=== PATIENT | female | born 1960 | race Caucasian/White ===

== ENCOUNTER 2017-05-13 09:32 | Inpatient (IN) | payer BC, MEDICAID ==
[2017-05-13] MEDS ORDERED: Albuterol/Ipratropium 3.0-0.5 MG/3 ML Neb Soln NEB ONE (09:34)
[2017-05-13] MEDS ORDERED: Budesonide 0.5 MG/2 ML Neb Susp NEB ONE (09:34)
[2017-05-13] MEDS ORDERED: cefTRIAXone 1 GM Vial IV ONE (09:34)
--- NOTE | 2017-05-13 09:34 | EDM.PDOC ---
ED HPI GENERAL MEDICAL PROBLEM - General Chief Complaint: Respiratory Problem Stated Complaint: SOB Time Seen by Provider: 05/13/17 09:33 Source of Information: Reports: Patient, EMS, Old Records ([facility] chart/EMR). 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 The patient has a history of flu type symptoms, including fever of 100.8, generalized arthralgias, and nonspecific abdominal pain, including 10 episodes of emesis during the last few days, including one episode prior to arrival. He did take Tylenol yesterday evening with only minimal improvement of her symptoms. The patient has not taken her lisinopril for today secondary to the above symptoms. She denies any known exposure to infection, food poisoning, etc. She does have some generalized weakness with sensation of mild tachycardia this morning. Symptoms started about 5 days ago. The patient denies any chest pain/pressure, orthostasis, orthopnea, diaphoresis, paresthesias, recent decreased exercise tolerance, or any other anginal-type symptoms. No recent history of heartburn, diarrhea, melena, gross hematochezia, or any food intolerance, including fatty foods, etc.. She has also had some increasing wheezing and dyspnea with inhalers used at home this past evening. Note Accu- Chek of 137 mg percent taken by paramedics in route Onset: Gradual Onset Date: 05/02/17 Onset Time: 09:00 Duration: Constant, Getting Worse Location: Reports: Abdomen, Generalized (Generalized arthralgias). Denies: Head , Face, Neck, Chest, Back, Pelvis, Upper Extremity, Left, Upper Extremity, Right , Lower Extremity, Left, Lower Extremity, Right, Radiates to Quality: Reports: Ache, Same as Previous Episode Severity: Mild Improves with: Reports: None Worsens with: Reports: None Context: Reports: Other (As above) Associated Symptoms: Reports: Cough, Fever/Chills, Loss of Appetite, Nausea/ Vomiting, Shortness of Breath, Weakness (Nonspecific generalized). 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, Other Medication(s) (As above) Right Abdominal Pain Score (Numeric/FACES): 4 - Related Data Allergies Allergy/AdvReac Type Severity Reaction Status Date / Time b[place] nuts Allergy Swelling Uncoded 05/13/17 09:46 Home Meds: Home Meds Acetaminophen [Tylenol] 650 mg PO Q4H PRN 05/13/17 [History] Carvedilol [Coreg] 6.25 mg PO BIDMEALS 05/13/17 [History] Clopidogrel [Plavix] 75 mg PO DAILY 05/13/17 [History] Gabapentin [Neurontin] 300 mg PO TID 05/13/17 [History] Lisinopril 30 mg PO DAILY 05/13/17 [History] Sertraline [Zoloft] 100 mg PO BID 05/13/17 [History] atorvaSTATin [Lipitor] 20 mg PO BEDTIME 05/13/17 [History] busPIRone [Buspar] 15 mg PO BID 05/13/17 [History] oxyCODONE HCl [Oxycodone HCl] 10 mg PO 5XDAY 05/13/17 [History] Past Medical History HEENT History: Reports: Impaired Vision, Other (See Below). Denies: Allergic Rhinitis, Cataract, Glaucoma, Hard of Hearing, Macular Degeneration, Retinal Detachment Other HEENT History: Severe allergic reactions to [place] nuts including angioedema Cardiovascular History: Reports: CAD, High Cholesterol, Hypertension, AR, PTCA, Stents, Other (See Below). Denies: Afib, Arrhythmia, Blood Clots/VTE/DVT, Heart Failure, Heart Murmur, Syncope Other Cardiovascular History: Acute AR on 04/30/09 Respiratory History: Reports: Bronchitis, Recurrent, COPD, Intubation, Previous , Pulmonary Fibrosis. Denies: Intubation, Difficult, PE, Pneumothorax, Sleep Apnea Gastrointestinal History: Reports: Cholelithiasis, Pancreatitis, Other (See Below) Other Gastrointestinal History: Pancreatitis secondary to remaining in 1990 Musculoskeletal History: Reports: Back Pain, Chronic, Fracture, Osteoarthritis, Other (See Below) Other Musculoskeletal History: Right distal radial fracture on 06/17/16, scoliosis with degenerative disc disease including disc prolapse at L5-S1 and grade 1 listhesis at L4-L5 by MRI on 08/08/16 Neurological History: Reports: Neuropathy, Peripheral Endocrine/Metabolic History: Reports: Obesity/BMI 30+ - Past Surgical History GI Surgical History: Reports: Cholecystectomy, Other (See Below) Other GI Surgeries/Procedures: open cholecystectomy in 1994 - Past Imaging History Past Imaging History: Reports: Angiography (Heart catheterization on 04/30/09), Cardiac Echo (12/26/12 with ejection fraction of 69%), MRI (Lumbar region on 08/08), Stress Testing (Unknown Type of drug induced stress test without Cardiolite scan in April 2009), Venous Doppler (Right leg on 01/07/13) Social & Family History - Family History Psychiatric: Reports: Anxiety, Depression, Suicide Attempt, Other (See Below) Other Psychiatric Family History: Son with anxiety depression disorder, alcohol abuse and successful suicide at age 23; - Living Situation & Occupation Occupation: Employed ([email or web address]) ED ROS GENERAL - Review of Systems Review Of Systems: ROS reveals no pertinent complaints other than HPI. ED EXAM, GENERAL - Physical Exam Exam: See Below Exam Limited By: No Limitations General Appearance: Alert, WD/WN, No Apparent Distress Eye Exam: Bilateral Eye: EOMI, Normal Inspection (No nystagmus), PERRL Ears: Normal External Exam, Normal Canal, Hearing Grossly Normal, Normal TMs Nose: Clear Rhinorrhea Throat/Mouth: Normal Lips, Normal Teeth (Multiple missing teeth), Normal Gums, Normal Voice, No Airway Compromise. No: Normal Oropharynx (Trace erythema in the posterior pharynx with no pinpoint white exudates or peritonsillar abscess; mild decreased moisture of oral mucosa), Dysphagia, Perioral Cyanosis Head: Atraumatic, Normocephalic. No: Facial Swelling, Facial Tenderness, Sinus Tenderness Neck: Normal Inspection, Supple, Non-Tender, Full Range of Motion. No: Carotid Bruit, Lymphadenopathy (L), Lymphadenopathy (R), Thyromegaly Respiratory/Chest: No Accessory Muscle Use, Chest Non-Tender, Rales (Mild diffuse bilateral basilar rales with only mild bilateral basilar rales after nebulizer treatments as below), Rhonchi (Moderate diffuse improved with nebulizer therapy), Wheezing (Moderate diffuse with resolution with nebulizer therapy). No: Pleural Rub, Retractions Cardiovascular: Normal Peripheral Pulses, No Edema, No Gallop, No JVD, No Murmur , No Rub, Tachycardia (Regular rhythm). No: Gallop/S3, Gallop/S4, Friction Rub Peripheral Pulses: 2+: Radial (L), Radial (R), Dorsalis Pedis (L), Dorsalis Pedis (R) GI/Abdominal: Normal Bowel Sounds, No Organomegaly, No Distention, No Abnormal Bruit, No Mass, Pelvis Stable, Tender (Moderate right upper quadrant and periumbilical palpation pain ), Other (Obese, multiple abdominal striae secondary to obesity ). No: Guarding, Rebound, Hernia, Mass (Female) Exam: Deferred Rectal (Female) Exam: Deferred Back Exam: Normal Inspection, Full Range of Motion. No: CVA Tenderness (L), CVA Tenderness (R), Muscle Spasm Extremities: Normal Inspection, Normal Range of Motion, Non-Tender, Normal Capillary Refill, No Pedal Edema Neurological: Alert, Oriented, CN II-XII Intact, Normal Cognition, Normal Gait, Normal Reflexes (Negative Babinski's), No Motor/Sensory Deficits Psychiatric: Normal Affect, Normal Mood Skin Exam: Warm, Dry, Intact, Normal Color, No Rash. No: Diaphoretic, Ecchymosis, Petechiae, Wound/Incision Lymphatic: No Adenopathy EKG INTERPRETATION EKG Date: 05/13/17 Time: 09:46 Rhythm: Other (Sinus tachycardia) Rate (Beats/Min): 133 [place]: Normal (Neutral cardiac axis) P-Wave: Enlarged (Moderate diffuse biphasic P waves with extreme poor R-wave progression in the anterior leads) QRS: Normal (Yours interval of 0.09 seconds representing repolarization changes with nonspecific ST changes in leads 1, 2, and V4 through V6) ST-T: Normal (As above) QT: Normal NH/PQ Interval: 0.11 seconds with no delta waves Comparison: NA - No Prior EKG EKG Interpretation Comments: 1. No acute ischemic changes 2. Sinus tachycardia with repolarization changes and nonspecific ST changes 3. Probable left atrial enlargement Course - Vital Signs Last Recorded V/S: Last Vital Signs Temp 36.7 C 05/13/17 11:14 Pulse 103 H 05/13/17 11:14 Resp 27 H 05/13/17 11:14 BP 117/57 L 05/13/17 11:14 Pulse Ox 97 05/13/17 11:14 Vital Signs - 24 hr 05/13/17 05/13/17 05/13/17 09:34 09:50 10:21 Temperature [ 37.2 C Oral] Pulse, 130 H 126 H 117 H Peripheral [ Right Brachial] Respiratory 24 H 24 H 30 H Rate Blood Pressure 140/78 116/57 L 116/57 L [Right Upper Arm] O2 Sat by Pulse 95 96 98 Oximetry 05/13/17 11:14 Temperature [ 36.7 C Oral] Pulse, 103 H Peripheral [ Right Brachial] Respiratory 27 H Rate Blood Pressure 117/57 L [Right Upper Arm] O2 Sat by Pulse 97 Oximetry - Orders/Labs/Meds Orders: Active Orders 24 hr Category Date Time Status Cardiac Monitoring [RC] CONTINUOUS Care 05/13/17 09:34 Active Communication Order [RC] ROUTINE Care 05/13/17 09:34 Active EKG Documentation Completion [RC] ASDIRECTED Care 05/13/17 09:36 Active Oxygen Therapy, ED [RC] CONTINUOUS Care 05/13/17 09:34 Active Peripheral IV Care [RC] . DIRECTED Care 05/13/17 09:36 Active Pulse Oximetry [RC] CONTINUOUS Care 05/13/17 09:34 Active Up With Assistance [RC] ASDIRECTED Care 05/13/17 09:34 Active Nothing Per Oral Diet [DIET] Diet 05/13/17 Breakfast Active Abdomen Series w Chest 1V [CR] Stat Exams 05/13/17 09:45 Taken Chest PE [Ang Chest] [CT] Stat Exams 05/13/17 10:21 Ordered CULTURE BLOOD [BC] Stat Lab 05/13/17 09:35 Received CULTURE BLOOD [BC] Stat Lab 05/13/17 09:40 Received CULTURE SPUTUM + SMEAR [RM] Urgent Lab 05/13/17 09:34 Uncollected CULTURE STREP A CONFIRMATION [] Stat Lab 05/13/17 09:40 Results STREP SCRN A RAPID W CULT CONF [] Stat Lab 05/13/17 09:40 Results Acetaminophen [Tylenol] Med 05/13/17 09:34 Active 650 mg PO Q4H PRN Sodium Chloride 0.9% [Saline Flush] Med 05/13/17 09:34 Active 10 ml FLUSH ASDIRECTED PRN Blood Culture x2 Reflex Set [OM.PC] Stat Oth 05/13/17 09:34 Ordered Obtain Past Medical Record [OM.PC] Stat Oth 05/13/17 09:34 Active Peripheral IV Insertion Adult [OM.PC] Stat Oth 05/13/17 09:34 Ordered Resuscitation Status Routine Resus Stat 05/13/17 09:34 Ordered Medication Orders Acetaminophen (Tylenol) 650 mg PO Q4H PRN PRN Reason: Pain/Fever Last Admin: 05/13/17 10:20 Dose: 650 mg Sodium Chloride (Saline Flush) 10 ml FLUSH ASDIRECTED PRN PRN Reason: Keep Vein Open Labs: Laboratory Tests 05/13/17 05/13/17 05/13/17 Range/Units 09:40 09:40 09:40 WBC 6.6 (4.0-10.2) K/uL RBC 4.64 (3.77-5.09) M/uL Hgb 14.5 (11.7-15.5) g/dL Hct 41.3 (34.0-46.0) % MCV 89.0 D (84.0-98.0) fL MCH 31.3 (28.2-33.3) pg MCHC 35.1 (31.7-36.0) g/dL RDW 14.5 H (11.2-14.1) % Plt Count 114 L D (150-350) K/uL Neut % (Auto) 97.2 H (45.0-80.0) % Lymph % (Auto) 1.8 L (10.0-50.0) % [place] % (Auto) 0.6 L (2.0-14.0) % Eos % (Auto) 0.2 (0.0-5.0) % Baso % (Auto) 0.2 (0.0-2.0) % Neut # (Auto) 6.41 (1.40-7.00) K/uL Lymph # (Auto) 0.12 L (0.50-3.50) K/uL [place] # (Auto) 0.04 (0.00-1.00) K/uL Eos # (Auto) 0.01 (0.00-0.50) K/uL Baso # (Auto) 0.01 (0.00-0.20) K/uL D-Dimer, Quantitative 3950 H (0-400) ng/mL Sodium 136 (136-145) mmol/L Potassium 2.2 L* D (3.5-5.1) mmol/L Chloride 100 (98-107) mmol/L Carbon Dioxide 16.4 L (21.0-32.0) mmol/L BUN 33 H (7-18) mg/dL Creatinine 0.82 (0.51-1.17) mg/dL Est Cr Clr Drug Dosing 68.93 mL/min Estimated GFR (MDRD) > 60 mL/min Glucose 165 H (74-106) mg/dL Lactic Acid (0.4-2.0) mmol/L Calcium 8.7 (8.5-10.1) mg/dL Magnesium 1.7 L (1.8-2.4) mg/dL Total Bilirubin 1.2 H (0.2-1.0) mg/dL AST 30 (15-37) U/L ALT 35 (12-78) U/L Alkaline Phosphatase 253 H (46-116) IU/L Creatine Kinase 42 (26-308) U/L Creatine Kinase Index 1.4 (0.0-2.5) % CK-MB (CK-2) 0.60 (0.00-3.60) ng/mL Troponin I 0.000 (0.000-0.056) ng/mL NT-Pro-B Natriuret Pep 137 H (0-125) pg/mL Total Protein 6.5 (6.4-8.2) g/dL Albumin 2.3 L (3.4-5.0) g/dL Amylase 6 L (25-115) U/L Lipase 32 L (73-393) U/L TSH, Ultra Sensitive 1.082 (0.358-3.740) mIU/mL 05/13/17 Range/Units 09:40 WBC (4.0-10.2) K/uL RBC (3.77-5.09) M/uL Hgb (11.7-15.5) g/dL Hct (34.0-46.0) % MCV (84.0-98.0) fL MCH (28.2-33.3) pg MCHC (31.7-36.0) g/dL RDW (11.2-14.1) % Plt Count (150-350) K/uL Neut % (Auto) (45.0-80.0) % Lymph % (Auto) (10.0-50.0) % [place] % (Auto) (2.0-14.0) % Eos % (Auto) (0.0-5.0) % Baso % (Auto) (0.0-2.0) % Neut # (Auto) (1.40-7.00) K/uL Lymph # (Auto) (0.50-3.50) K/uL [place] # (Auto) (0.00-1.00) K/uL Eos # (Auto) (0.00-0.50) K/uL Baso # (Auto) (0.00-0.20) K/uL D-Dimer, Quantitative (0-400) ng/mL Sodium (136-145) mmol/L Potassium (3.5-5.1) mmol/L Chloride (98-107) mmol/L Carbon Dioxide (21.0-32.0) mmol/L BUN (7-18) mg/dL Creatinine (0.51-1.17) mg/dL Est Cr Clr Drug Dosing mL/min Estimated GFR (MDRD) mL/min Glucose (74-106) mg/dL Lactic Acid 5.5 H (0.4-2.0) mmol/L Calcium (8.5-10.1) mg/dL Magnesium (1.8-2.4) mg/dL Total Bilirubin (0.2-1.0) mg/dL AST (15-37) U/L ALT (12-78) U/L Alkaline Phosphatase (46-116) IU/L Creatine Kinase (26-308) U/L Creatine Kinase Index (0.0-2.5) % CK-MB (CK-2) (0.00-3.60) ng/mL Troponin I (0.000-0.056) ng/mL NT-Pro-B Natriuret Pep (0-125) pg/mL Total Protein (6.4-8.2) g/dL Albumin (3.4-5.0) g/dL Amylase (25-115) U/L Lipase (73-393) U/L TSH, Ultra Sensitive (0.358-3.740) mIU/mL Blood cultures 2 collected Microbiology 05/13/17 09:40 Group A Streptococcus Rapid Screen - Final Throat NEGATIVE STREP A SCREEN 05/13/17 09:38 Influenza Type A Antigen Screen - Final Nasopharyngeal Swab - Nare, Right NEGATIVE INFLUENZA A VIRUS AG Influenza Type B Antigen Screen - Final NEGATIVE INFLUENZA B VIRUS AG Meds: Medications Generic Name Dose Route Start Last Admin Trade Name Ayanna PRN Reason Stop Dose Admin Acetaminophen 650 mg 05/13/17 09:34 05/13/17 10:20 Tylenol PO 650 mg Q4H PRN Administration Pain/Fever Sodium Chloride 10 ml 05/13/17 09:34 Saline Flush FLUSH ASDIRECTED PRN Keep Vein Open Discontinued Medications Generic Name Dose Route Start Last Admin Trade Name Ayanna PRN Reason Stop Dose Admin Albuterol/Ipratropium 3 ml 05/13/17 09:34 05/13/17 10:00 Duoneb 3.0-0.5 Mg/3 Ml NEB 05/13/17 09:35 3 ml ONETIME ONE Administration Budesonide 0.5 mg 05/13/17 09:34 05/13/17 10:00 Pulmicort NEB 05/13/17 09:35 0.5 mg ONETIME ONE Administration Ceftriaxone Sodium 1 gm 05/13/17 09:34 05/13/17 10:02 Rocephin IV 05/13/17 09:35 1 gm ONETIME ONE Administration Famotidine 40 mg 05/13/17 09:46 05/13/17 10:02 Pepcid IVPUSH 05/13/17 09:47 40 mg ONETIME ONE Administration Lactated Ringer's 1,000 mls @ 999 mls/hr 05/13/17 09:46 05/13/17 10:02 Ringers, Lactated IV 05/13/17 10:46 999 mls/hr .BOLUS ONE Administration Iopamidol 100 ml 05/13/17 10:29 05/13/17 10:52 Isovue-370 (76%) IVPUSH 05/13/17 10:30 100 ml ONETIME ONE Administration Magnesium Oxide 400 mg 05/13/17 11:12 Magnesium Oxide PO 05/13/17 11:13 ONETIME ONE Potassium Chloride 40 meq 05/13/17 11:12 Klor-Con M20 PO 05/13/17 11:13 ONETIME ONE - Radiology Interpretation Free Text/Narrative:: clinical research monitor shows initial sinus tachycardia in the high 130s with improvement to the 100s after treatment in the emergency room as above Acute abdominal x-rays shows evidence of moderate COPD changes and probable pulmonary hypertension and/or borderline mild centralized CHF. No significant pulmonary infiltrates, pneumothorax, etc.. Mildly elevated right hemidiaphragm. Note status post cholecystectomy. Mild diffuse stool with no free air, ileus, obstruction, etc. Telephone consultation at 11:15 a.m. with radiology department at [facility] with verbal report of CT of the chest using PE protocol. Negative evaluation at this time CT Results Date: 05/13/17 CT Results Time: 11:15 Departure - Departure Time of Disposition: :26 Disposition: Still A Patient 30 Condition: Fair Clinical Impression: Pneumonia, COPD (chronic obstructive pulmonary disease), Coronary artery disease, Lactic acid increased, Hypokalemia, D-dimer, elevated, Hyperglycemia, Hypomagnesemia, Hypoalbuminemia, Dehydration, Abdominal pain, Tobacco abuse counseling - Discharge Information Referrals: Dann Viramontes NP [Primary Care Provider] - Forms: ED Department Discharge - Problem List & Annotations (1) Pneumonia SNOMED Code(s): 508361730 Code(s): J18.9 - PNEUMONIA, UNSPECIFIED ORGANISM Status: Acute Priority: High Current Visit: Yes Onset Date: 05/13/17 Annotation/Comment:: Bilateral pneumonia by clinical exam despite minimal chest x-ray findings. IV Rocephin therapy initiated in the emergency room with additional antibiotic therapy also recommended. Note possible borderline sepsis as above Qualifiers: Pneumonia type: due to unspecified organism Laterality: bilateral Lung location: unspecified part of lung Qualified Code(s): J18.9 - Pneumonia, unspecified organism (2) Lactic acid increased SNOMED Code(s): 78076174 Code(s): E87.2 - ACIDOSIS Status: Acute Priority: High Current Visit: Yes Onset Date: 05/13/17 Annotation/Comment:: Possible sepsis secondary to pneumonia as above. Tachycardia improved as above. Lactic acid should be repeated in about 6 hours. Continue IV fluids (3) D-dimer, elevated SNOMED Code(s): 380963629 Code(s): R79.89 - OTHER SPECIFIED ABNORMAL FINDINGS OF BLOOD CHEMISTRY Status: Acute Priority: High Current Visit: Yes Onset Date: 05/13/17 Annotation/Comment:: CTA of the chest ordered with PE protocol (4) Abdominal pain SNOMED Code(s): 51507776 Code(s): R10.9 - UNSPECIFIED ABDOMINAL PAIN Status: Acute Priority: High Current Visit: Yes Onset Date: 05/13/17 Annotation/Comment:: Unspecific abdominal pain, nausea, and emesis likely secondary to viral GE. No significant leukocytosis at this time. Consider CT scan of the abdomen and pelvis with IV and oral contrast pending on her clinical course, however apparent history of previous pancreatitis secondary to contrast in the past? Qualifiers: Abdominal location: generalized Qualified Code(s): R10.84 - Generalized abdominal pain (5) COPD (chronic obstructive pulmonary disease) SNOMED Code(s): 63148634 Code(s): J44.9 - CHRONIC OBSTRUCTIVE PULMONARY DISEASE, UNSPECIFIED Status : Chronic Priority: High Current Visit: Yes Annotation/Comment:: Significant improvement in patient's symptoms with triple nebulizer treatment in the emergency room. Qualifiers: COPD type: COPD with acute lower respiratory infection Qualified Code(s): J44.0 - Chronic obstructive pulmonary disease with acute lower respiratory infection (6) Coronary artery disease SNOMED Code(s): 56840348 Code(s): I25.10 - ATHSCL HEART DISEASE OF [place] CORONARY ARTERY W/O ANG PCTRS Status: Chronic Priority: Medium Current Visit: Yes Annotation/ Comment:: Tachycardia improved with aggressive treatment as above. Tachycardia likely secondary to borderline possible sepsis, and dehydration no chest pain or anginal type symptoms. Only minimal BNP elevation with no clinical evidence of CHF. Note previous AR with PTCA and stent as above Qualifiers: Coronary Disease-Associated Artery/Lesion type: [place] artery [place] vs. transplanted heart: [place] heart Associated angina: without angina Qualified Code(s): I25.10 - Atherosclerotic heart disease of [place] coronary artery without angina pectoris (7) Dehydration SNOMED Code(s): 22314325 Code(s): E86.0 - DEHYDRATION Status: Acute Priority: High Current Visit : Yes Onset Date: 05/13/17 Annotation/Comment:: Mild Dehydration secondary to current illness. IV LR initiated in the emergency room (8) Hyperglycemia SNOMED Code(s): 20320099 Code(s): R73.9 - HYPERGLYCEMIA, UNSPECIFIED Status: Acute Priority: Medium Current Visit: Yes Onset Date: 05/13/17 Annotation/Comment:: No history of diabetes mellitus by patient history. Glycosylated hemoglobin recommended (9) Hypoalbuminemia SNOMED Code(s): 650373442 Code(s): E88.09 - [facility] DISORDERS OF PLASMA-PROTEIN METABOLISM, NEC Status: Acute Priority: Medium Current Visit: Yes Onset Date: 05/13/17 Annotation/Comment:: High-protein Glucerna supplements as snacks recommended (10) Hypokalemia SNOMED Code(s): 59595197 Code(s): E87.6 - HYPOKALEMIA Status: Chronic Priority: High Current Visit: Yes Onset Date: 05/13/17 Annotation/Comment:: Significant hypokalemia likely secondary to recurrent emesis as above. IV bolus of lactated Ringer's initiated in the emergency room with mid continue both oral and IV potassium supplementation and IV fluids (11) Hypomagnesemia SNOMED Code(s): 923205569 Code(s): E83.42 - HYPOMAGNESEMIA Status: Acute Priority: Medium Current Visit: Yes Onset Date: 05/13/17 Annotation/Comment:: Recommend initiation of magnesium oxide (12) Hypertension SNOMED Code(s): 13612534 Code(s): I10 - ESSENTIAL (PRIMARY) HYPERTENSION Status: Acute Priority: Medium Current Visit: Yes Annotation/Comment:: Blood pressures were under relatively good control despite borderline sepsis and noncompliance with lisinopril otherwise couple of days. Continue to observe closely Qualifiers: Hypertension type: essential hypertension Qualified Code(s): I10 - Essential (primary) hypertension (13) Tobacco abuse counseling SNOMED Code(s): 705264773, 078583832 Code(s): Z71.6 - TOBACCO ABUSE COUNSELING Status: Chronic Priority: Medium Current Visit: Yes Annotation/Comment:: Tobacco cessation strongly encouraged with tobacco cessation information to be provided at discharge - Problem List Review Problem List Initiated/Reviewed/Updated: Yes - My Orders Last 24 Hours: My Active Orders 05/13/17 09:34 Cardiac Monitoring [RC] CONTINUOUS Communication Order [RC] ROUTINE Oxygen Therapy, ED [RC] CONTINUOUS Pulse Oximetry [RC] CONTINUOUS Up With Assistance [RC] ASDIRECTED CULTURE SPUTUM + SMEAR [RM] Urgent Acetaminophen [Tylenol] 650 mg PO Q4H PRN Sodium Chloride 0.9% [Saline Flush] 10 ml FLUSH ASDIRECTED PRN Blood Culture x2 Reflex Set [OM.PC] Stat Obtain Past Medical Record [OM.PC] Stat Peripheral IV Insertion Adult [OM.PC] Stat Resuscitation Status Routine 05/13/17 09:35 CULTURE BLOOD [BC] Stat 05/13/17 09:36 EKG Documentation Completion [RC] ASDIRECTED Peripheral IV Care [RC] . DIRECTED 05/13/17 09:40 CULTURE BLOOD [BC] Stat CULTURE STREP A CONFIRMATION [RM] Stat STREP SCRN A RAPID W CULT CONF [RM] Stat 05/13/17 09:45 Abdomen Series w Chest 1V [CR] Stat 05/13/17 10:21 Chest PE [Ang Chest] [CT] Stat 05/13/17 Breakfast Nothing Per Oral Diet [DIET] - Assessment/Plan Last 24 Hours: My Active Orders 05/13/17 09:34 Cardiac Monitoring [RC] CONTINUOUS Communication Order [RC] ROUTINE Oxygen Therapy, ED [RC] CONTINUOUS Pulse Oximetry [RC] CONTINUOUS Up With Assistance [RC] ASDIRECTED CULTURE SPUTUM + SMEAR [RM] Urgent Acetaminophen [Tylenol] 650 mg PO Q4H PRN Sodium Chloride 0.9% [Saline Flush] 10 ml FLUSH ASDIRECTED PRN Blood Culture x2 Reflex Set [OM.PC] Stat Obtain Past Medical Record [OM.PC] Stat Peripheral IV Insertion Adult [OM.PC] Stat Resuscitation Status Routine 05/13/17 09:35 CULTURE BLOOD [BC] Stat 05/13/17 09:36 EKG Documentation Completion [RC] ASDIRECTED Peripheral IV Care [RC] . DIRECTED 05/13/17 09:40 CULTURE BLOOD [BC] Stat CULTURE STREP A CONFIRMATION [RM] Stat STREP SCRN A RAPID W CULT CONF [RM] Stat 05/13/17 09:45 Abdomen Series w Chest 1V [CR] Stat 05/13/17 10:21 Chest PE [Ang Chest] [CT] Stat 05/13/17 Breakfast Nothing Per Oral Diet [DIET] Assessment:: As above Plan: As above. Patient's care transferred to Dr. Goetz at 11:15 a.m.. Probable admission to inpatient/acute care.
[2017-05-13] MEDS ORDERED: Lactated Ringers 1,000 ML IV ONE (09:46)
[2017-05-13] MEDS ORDERED: Famotidine 20 MG/2 ML SDV IVPUSH ONE (09:46)
[2017-05-13 10:11] LABS: CHLORIDE,CL 100 mmol/L (98-107); SODIUM,NA 136 mmol/L (136-145)
[2017-05-13] MEDS: Acetaminophen 325 MG Tab PO PRN (10:20)
[2017-05-13] MEDS ORDERED: Iopamidol 755 Mg/ML 100 ML Bottle IVPUSH ONE (10:29)
[2017-05-13] MEDS ORDERED: Magnesium Oxide 400 MG Tab PO ONE (11:12)
[2017-05-13] MEDS ORDERED: Potassium Chloride 20 MEQ Tab.ER PO ONE ×3 (11:12→19:00)
--- NOTE | 2017-05-13 11:41 | EDM.PDOC ---
ED HPI GENERAL MEDICAL PROBLEM - General Chief Complaint: Respiratory Problem Stated Complaint: SOB Time Seen by Provider: 05/13/17 09:33 Source of Information: Reports: Patient, EMS, Old Records ([facility] chart/EMR). 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 The patient has a history of flu type symptoms, including fever of 100.8, generalized arthralgias, and nonspecific abdominal pain, including 10 episodes of emesis during the last few days, including one episode prior to arrival. He did take Tylenol yesterday evening with only minimal improvement of her symptoms. The patient has not taken her lisinopril for today secondary to the above symptoms. She denies any known exposure to infection, food poisoning, etc. She does have some generalized weakness with sensation of mild tachycardia this morning. Symptoms started about 5 days ago. The patient denies any chest pain/pressure, orthostasis, orthopnea, diaphoresis, paresthesias, recent decreased exercise tolerance, or any other anginal-type symptoms. No recent history of heartburn, diarrhea, melena, gross hematochezia, or any food intolerance, including fatty foods, etc.. She has also had some increasing wheezing and dyspnea with inhalers used at home this past evening. Note Accu- Chek of 137 mg percent taken by paramedics in route Onset: Gradual Onset Date: 05/02/17 Onset Time: 09:00 Duration: Constant, Getting Worse Location: Reports: Abdomen, Generalized (Generalized arthralgias). Denies: Head , Face, Neck, Chest, Back, Pelvis, Upper Extremity, Left, Upper Extremity, Right , Lower Extremity, Left, Lower Extremity, Right, Radiates to Quality: Reports: Ache, Same as Previous Episode Severity: Mild Improves with: Reports: None Worsens with: Reports: None Context: Reports: Other (As above) Associated Symptoms: Reports: Cough, Fever/Chills, Loss of Appetite, Nausea/ Vomiting, Shortness of Breath, Weakness (Nonspecific generalized). 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, Other Medication(s) (As above) Right Abdominal Pain Score (Numeric/FACES): 4 - Related Data Allergies Allergy/AdvReac Type Severity Reaction Status Date / Time [place] nuts Allergy Swelling Uncoded 05/13/17 09:46 Home Meds: Home Meds Acetaminophen [Tylenol] 650 mg PO Q4H PRN 05/13/17 [History] Carvedilol [Coreg] 6.25 mg PO BIDMEALS 05/13/17 [History] Clopidogrel [Plavix] 75 mg PO DAILY 05/13/17 [History] Gabapentin [Neurontin] 300 mg PO TID 05/13/17 [History] Lisinopril 30 mg PO DAILY 05/13/17 [History] Sertraline [Zoloft] 100 mg PO BID 05/13/17 [History] atorvaSTATin [Lipitor] 20 mg PO BEDTIME 05/13/17 [History] busPIRone [Buspar] 15 mg PO BID 05/13/17 [History] oxyCODONE HCl [Oxycodone HCl] 10 mg PO 5XDAY 05/13/17 [History] Past Medical History HEENT History: Reports: Impaired Vision, Other (See Below). Denies: Allergic Rhinitis, Cataract, Glaucoma, Hard of Hearing, Macular Degeneration, Retinal Detachment Other HEENT History: Severe allergic reactions to [place] nuts including angioedema Cardiovascular History: Reports: CAD, High Cholesterol, Hypertension, [place], PTCA, Stents, Other (See Below). Denies: Afib, Arrhythmia, Blood Clots/VTE/DVT, Heart Failure, Heart Murmur, Syncope Other Cardiovascular History: Acute [place] on 04/30/09 Respiratory History: Reports: Bronchitis, Recurrent, COPD, Intubation, Previous , Pulmonary Fibrosis. Denies: Intubation, Difficult, PE, Pneumothorax, Sleep Apnea Gastrointestinal History: Reports: Cholelithiasis, Pancreatitis, Other (See Below) Other Gastrointestinal History: Pancreatitis secondary to remaining in 1990 Musculoskeletal History: Reports: Back Pain, Chronic, Fracture, Osteoarthritis, Other (See Below) Other Musculoskeletal History: Right distal radial fracture on 06/17/16, scoliosis with degenerative disc disease including disc prolapse at L5-S1 and grade 1 listhesis at L4-L5 by MRI on 08/08/16 Neurological History: Reports: Neuropathy, Peripheral Endocrine/Metabolic History: Reports: Obesity/BMI 30+ - Past Surgical History GI Surgical History: Reports: Cholecystectomy, Other (See Below) Other GI Surgeries/Procedures: open cholecystectomy in 1994 - Past Imaging History Past Imaging History: Reports: Angiography (Heart catheterization on 04/30/09), Cardiac Echo (12/26/12 with ejection fraction of 69%), MRI (Lumbar region on 08/08), Stress Testing (Unknown Type of drug induced stress test without Cardiolite scan in April 2009), Venous Doppler (Right leg on 01/07/13) Social & Family History - Family History Psychiatric: Reports: Anxiety, Depression, Suicide Attempt, Other (See Below) Other Psychiatric Family History: Son with anxiety depression disorder, alcohol abuse and successful suicide at age 23; - Living Situation & Occupation Occupation: Employed ([employer]) ED ROS GENERAL - Review of Systems Review Of Systems: ROS reveals no pertinent complaints other than HPI. 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 The patient has a history of flu type symptoms, including fever of 100.8, generalized arthralgias, and nonspecific abdominal pain, including 10 episodes of emesis during the last few days, including one episode prior to arrival. He did take Tylenol yesterday evening with only minimal improvement of her symptoms. The patient has not taken her lisinopril for today secondary to the above symptoms. She denies any known exposure to infection, food poisoning, etc. She does have some generalized weakness with sensation of mild tachycardia this morning. Symptoms started about 5 days ago. The patient denies any chest pain/pressure, orthostasis, orthopnea, diaphoresis, paresthesias, recent decreased exercise tolerance, or any other anginal-type symptoms. No recent history of heartburn, diarrhea, melena, gross hematochezia, or any food intolerance, including fatty foods, etc.. She has also had some increasing wheezing and dyspnea with inhalers used at home this past evening. Note Accu- Chek of 137 mg percent taken by paramedics in route Exam Limited By: No Limitations General Appearance: Alert, WD/WN, No Apparent Distress Ears: Normal External Exam, Normal Canal, Hearing Grossly Normal, Normal TMs Nose: Clear Rhinorrhea Throat/Mouth: Normal Lips, Normal Teeth (Multiple missing teeth), Normal Gums, Normal Voice, No Airway Compromise. No: Normal Oropharynx (Trace erythema in the posterior pharynx with no pinpoint white exudates or peritonsillar abscess; mild decreased moisture of oral mucosa), Dysphagia, Perioral Cyanosis Head: Atraumatic, Normocephalic. No: Facial Swelling, Facial Tenderness, Sinus Tenderness Neck: Normal Inspection, Supple, Non-Tender, Full Range of Motion. No: Carotid Bruit, Lymphadenopathy (L), Lymphadenopathy (R), Thyromegaly Respiratory/Chest: No Accessory Muscle Use, Chest Non-Tender, Rales (Mild diffuse bilateral basilar rales with only mild bilateral basilar rales after nebulizer treatments as below), Rhonchi (Moderate diffuse improved with nebulizer therapy), Wheezing (Moderate diffuse with resolution with nebulizer therapy). No: Pleural Rub, Retractions Cardiovascular: Normal Peripheral Pulses, No Edema, No Gallop, No JVD, No Murmur , No Rub, Tachycardia (Regular rhythm). No: Gallop/S3, Gallop/S4, Friction Rub Peripheral Pulses: 2+: Radial (L), Radial (R), Dorsalis Pedis (L), Dorsalis Pedis (R) GI/Abdominal: Normal Bowel Sounds, No Organomegaly, No Distention, No Abnormal Bruit, No Mass, Pelvis Stable, Tender (Moderate right upper quadrant and periumbilical palpation pain ), Other (Obese, multiple abdominal striae secondary to obesity ). No: Guarding, Rebound, Hernia, Mass Back Exam: Normal Inspection, Full Range of Motion. No: CVA Tenderness (L), CVA Tenderness (R), Muscle Spasm Extremities: Normal Inspection, Normal Range of Motion, Non-Tender, Normal Capillary Refill, No Pedal Edema Neurological: Alert, Oriented, CN II-XII Intact, Normal Cognition, Normal Gait, Normal Reflexes (Negative Babinski's), No Motor/Sensory Deficits Psychiatric: Normal Affect, Normal Mood Skin Exam: Warm, Dry, Intact, Normal Color, No Rash. No: Diaphoretic, Ecchymosis, Petechiae, Wound/Incision Lymphatic: No Adenopathy Course - Vital Signs Last Recorded V/S: Last Vital Signs Temp 36.7 C 05/13/17 11:14 Pulse 103 H 05/13/17 11:14 Resp 27 H 05/13/17 11:14 BP 117/57 L 05/13/17 11:14 Pulse Ox 97 05/13/17 11:14 - Orders/Labs/Meds Orders: Active Orders 24 hr Category Date Time Status Cardiac Monitoring [RC] CONTINUOUS Care 05/13/17 09:34 Active Communication Order [RC] ROUTINE Care 05/13/17 09:34 Active EKG Documentation Completion [RC] ASDIRECTED Care 05/13/17 09:36 Active Oxygen Therapy, ED [RC] CONTINUOUS Care 05/13/17 09:34 Active Peripheral IV Care [RC] . DIRECTED Care 05/13/17 09:36 Active Pulse Oximetry [RC] CONTINUOUS Care 05/13/17 09:34 Active Up With Assistance [RC] ASDIRECTED Care 05/13/17 09:34 Active Nothing Per Oral Diet [DIET] Diet 05/13/17 Breakfast Active Abdomen Series w Chest 1V [CR] Stat Exams 05/13/17 09:45 Taken Chest PE [Ang Chest] [CT] Stat Exams 05/13/17 10:21 Taken CULTURE BLOOD [BC] Stat Lab 05/13/17 09:35 Received CULTURE BLOOD [] Stat Lab 05/13/17 09:40 Received CULTURE SPUTUM + SMEAR [] Urgent Lab 05/13/17 09:34 Uncollected CULTURE STREP A CONFIRMATION [] Stat Lab 05/13/17 09:40 Results STREP SCRN A RAPID W CULT CONF [] Stat Lab 05/13/17 09:40 Results Acetaminophen [Tylenol] Med 05/13/17 09:34 Active 650 mg PO Q4H PRN Sodium Chloride 0.9% [Saline Flush] Med 05/13/17 09:34 Active 10 ml FLUSH ASDIRECTED PRN Blood Culture x2 Reflex Set [OM.PC] Stat Oth 05/13/17 09:34 Ordered Obtain Past Medical Record [OM.PC] Stat Oth 05/13/17 09:34 Active Peripheral IV Insertion Adult [OM.PC] Stat Oth 05/13/17 09:34 Ordered Resuscitation Status Routine Resus Stat 05/13/17 09:34 Ordered Medication Orders Acetaminophen (Tylenol) 650 mg PO Q4H PRN PRN Reason: Pain/Fever Last Admin: 05/13/17 10:20 Dose: 650 mg Sodium Chloride (Saline Flush) 10 ml FLUSH ASDIRECTED PRN PRN Reason: Keep Vein Open Labs: Laboratory Tests 05/13/17 05/13/17 05/13/17 Range/Units 09:40 09:40 09:40 WBC 6.6 (4.0-10.2) K/uL RBC 4.64 (3.77-5.09) M/uL Hgb 14.5 (11.7-15.5) g/dL Hct 41.3 (34.0-46.0) % MCV 89.0 D (84.0-98.0) fL MCH 31.3 (28.2-33.3) pg MCHC 35.1 (31.7-36.0) g/dL RDW 14.5 H (11.2-14.1) % Plt Count 114 L D (150-350) K/uL Neut % (Auto) 97.2 H (45.0-80.0) % Lymph % (Auto) 1.8 L (10.0-50.0) % Cross % (Auto) 0.6 L (2.0-14.0) % Eos % (Auto) 0.2 (0.0-5.0) % Baso % (Auto) 0.2 (0.0-2.0) % Neut # (Auto) 6.41 (1.40-7.00) K/uL Lymph # (Auto) 0.12 L (0.50-3.50) K/uL Cross # (Auto) 0.04 (0.00-1.00) K/uL Eos # (Auto) 0.01 (0.00-0.50) K/uL Baso # (Auto) 0.01 (0.00-0.20) K/uL D-Dimer, Quantitative 3950 H (0-400) ng/mL Sodium 136 (136-145) mmol/L Potassium 2.2 L* D (3.5-5.1) mmol/L Chloride 100 (98-107) mmol/L Carbon Dioxide 16.4 L (21.0-32.0) mmol/L BUN 33 H (7-18) mg/dL Creatinine 0.82 (0.51-1.17) mg/dL Est Cr Clr Drug Dosing 68.93 mL/min Estimated GFR (MDRD) > 60 mL/min Glucose 165 H (74-106) mg/dL Lactic Acid (0.4-2.0) mmol/L Calcium 8.7 (8.5-10.1) mg/dL Magnesium 1.7 L (1.8-2.4) mg/dL Total Bilirubin 1.2 H (0.2-1.0) mg/dL AST 30 (15-37) U/L ALT 35 (12-78) U/L Alkaline Phosphatase 253 H (46-116) IU/L Creatine Kinase 42 (26-308) U/L Creatine Kinase Index 1.4 (0.0-2.5) % CK-MB (CK-2) 0.60 (0.00-3.60) ng/mL Troponin I 0.000 (0.000-0.056) ng/mL NT-Pro-B Natriuret Pep 137 H (0-125) pg/mL Total Protein 6.5 (6.4-8.2) g/dL Albumin 2.3 L (3.4-5.0) g/dL Amylase 6 L (25-115) U/L Lipase 32 L (73-393) U/L TSH, Ultra Sensitive 1.082 (0.358-3.740) mIU/mL 05/13/17 Range/Units 09:40 WBC (4.0-10.2) K/uL RBC (3.77-5.09) M/uL Hgb (11.7-15.5) g/dL Hct (34.0-46.0) % MCV (84.0-98.0) fL MCH (28.2-33.3) pg MCHC (31.7-36.0) g/dL RDW (11.2-14.1) % Plt Count (150-350) K/uL Neut % (Auto) (45.0-80.0) % Lymph % (Auto) (10.0-50.0) % Cross % (Auto) (2.0-14.0) % Eos % (Auto) (0.0-5.0) % Baso % (Auto) (0.0-2.0) % Neut # (Auto) (1.40-7.00) K/uL Lymph # (Auto) (0.50-3.50) K/uL Cross # (Auto) (0.00-1.00) K/uL Eos # (Auto) (0.00-0.50) K/uL Baso # (Auto) (0.00-0.20) K/uL D-Dimer, Quantitative (0-400) ng/mL Sodium (136-145) mmol/L Potassium (3.5-5.1) mmol/L Chloride (98-107) mmol/L Carbon Dioxide (21.0-32.0) mmol/L BUN (7-18) mg/dL Creatinine (0.51-1.17) mg/dL Est Cr Clr Drug Dosing mL/min Estimated GFR (MDRD) mL/min Glucose (74-106) mg/dL Lactic Acid 5.5 H (0.4-2.0) mmol/L Calcium (8.5-10.1) mg/dL Magnesium (1.8-2.4) mg/dL Total Bilirubin (0.2-1.0) mg/dL AST (15-37) U/L ALT (12-78) U/L Alkaline Phosphatase (46-116) IU/L Creatine Kinase (26-308) U/L Creatine Kinase Index (0.0-2.5) % CK-MB (CK-2) (0.00-3.60) ng/mL Troponin I (0.000-0.056) ng/mL NT-Pro-B Natriuret Pep (0-125) pg/mL Total Protein (6.4-8.2) g/dL Albumin (3.4-5.0) g/dL Amylase (25-115) U/L Lipase (73-393) U/L TSH, Ultra Sensitive (0.358-3.740) mIU/mL Meds: Medications Generic Name Dose Route Start Last Admin Trade Name Freq PRN Reason Stop Dose Admin Acetaminophen 650 mg 05/13/17 09:34 05/13/17 10:20 Tylenol PO 650 mg Q4H PRN Administration Pain/Fever Sodium Chloride 10 ml 05/13/17 09:34 Saline Flush FLUSH ASDIRECTED PRN Keep Vein Open Discontinued Medications Generic Name Dose Route Start Last Admin Trade Name Freq PRN Reason Stop Dose Admin Albuterol/Ipratropium 3 ml 05/13/17 09:34 05/13/17 10:00 Duoneb 3.0-0.5 Mg/3 Ml NEB 05/13/17 09:35 3 ml ONETIME ONE Administration Budesonide 0.5 mg 05/13/17 09:34 05/13/17 10:00 Pulmicort NEB 05/13/17 09:35 0.5 mg ONETIME ONE Administration Ceftriaxone Sodium 1 gm 05/13/17 09:34 05/13/17 10:02 Rocephin IV 05/13/17 09:35 1 gm ONETIME ONE Administration Famotidine 40 mg 05/13/17 09:46 05/13/17 10:02 Pepcid IVPUSH 05/13/17 09:47 40 mg ONETIME ONE Administration Lactated Ringer's 1,000 mls @ 999 mls/hr 05/13/17 09:46 05/13/17 10:02 Ringers, Lactated IV 05/13/17 10:46 999 mls/hr .BOLUS ONE Administration Iopamidol 100 ml 05/13/17 10:29 05/13/17 10:52 Isovue-370 (76%) IVPUSH 05/13/17 10:30 100 ml ONETIME ONE Administration Magnesium Oxide 400 mg 05/13/17 11:12 05/13/17 11:44 Magnesium Oxide PO 05/13/17 11:13 400 mg ONETIME ONE Administration Potassium Chloride 40 meq 05/13/17 11:12 05/13/17 11:44 Klor-Con M20 PO 05/13/17 11:13 40 meq ONETIME ONE Administration - Re-Assessments/Exams Free Text/Narrative Re-Assessment/Exam: 05/13/17 11:41 Patient initially evaluated by for complaint of fever, malaise, emesis, weakness, cough that has been present for several days. Please see his documentation for HPI/ROS/exam/initial results. WBC normal. Platelets decreased at 114. Rapid strep and influenza negative. DDimer elevated but patient had unremarkable chest CT. Amylase and Lipase were not elevated, however total Bili mildly increased at 1.2 Glucose 165 Lactic acid increased at 5.5 Noted to have both Albumin and Mg in lower range. K decreased to 2.2 Patient received IV fluids as well as oral K and Mg in the ER. Rocephin was also given. No focal bacterial infection identified at this point. Patient's illness certain could be viral. Potential sepsis was suggested by some of her presentation and labwork. Given her smoking history, respiratory complaints, and elevated lactic acid, she will receive antibiotic coverage in addition to correction of potassium. Admitted inpatient to floor with diagnosis of hypokalemia, fever, dehydration. Departure - Departure Time of Disposition: 11:59 Disposition: Admitted As Inpatient 66 Condition: Fair Clinical Impression: Pneumonia, COPD (chronic obstructive pulmonary disease), Coronary artery disease, Lactic acid increased, Hypokalemia, D-dimer, elevated, Hyperglycemia, Hypomagnesemia, Hypoalbuminemia, Dehydration, Abdominal pain, Tobacco abuse counseling - Discharge Information - Problem List & Annotations (1) Abdominal pain SNOMED Code(s): 56087877 Code(s): R10.9 - UNSPECIFIED ABDOMINAL PAIN Status: Acute Priority: High Current Visit: Yes Onset Date: 05/13/17 Annotation/Comment:: Unspecific abdominal pain, nausea, and emesis likely secondary to viral GE. No significant leukocytosis at this time. Consider CT scan of the abdomen and pelvis with IV and oral contrast pending on her clinical course, however apparent history of previous pancreatitis secondary to contrast in the past? Qualifiers: Abdominal location: generalized Qualified Code(s): R10.84 - Generalized abdominal pain (2) D-dimer, elevated SNOMED Code(s): 548069788 Code(s): R79.89 - OTHER SPECIFIED ABNORMAL FINDINGS OF BLOOD CHEMISTRY Status: Acute Priority: High Current Visit: Yes Onset Date: 05/13/17 Annotation/Comment:: Negative CTA of chest. (3) Dehydration SNOMED Code(s): 02758118 Code(s): E86.0 - DEHYDRATION Status: Acute Priority: High Current Visit : Yes Onset Date: 05/13/17 Annotation/Comment:: Mild Dehydration secondary to current illness. IV LR initiated in the emergency room (4) Hyperglycemia SNOMED Code(s): 09039354 Code(s): R73.9 - HYPERGLYCEMIA, UNSPECIFIED Status: Acute Priority: Medium Current Visit: Yes Onset Date: 05/13/17 Annotation/Comment:: No history of diabetes mellitus by patient history. Glycosylated hemoglobin recommended (5) Hypoalbuminemia SNOMED Code(s): 579843322 Code(s): E88.09 - OTH DISORDERS OF PLASMA-PROTEIN METABOLISM, NEC Status: Acute Priority: Medium Current Visit: Yes Onset Date: 05/13/17 Annotation/Comment:: High-protein Glucerna supplements as snacks recommended (6) Hypomagnesemia SNOMED Code(s): 832488222 Code(s): E83.42 - HYPOMAGNESEMIA Status: Acute Priority: Medium Current Visit: Yes Onset Date: 05/13/17 Annotation/Comment:: Recommend initiation of magnesium oxide (7) Lactic acid increased SNOMED Code(s): 33081501 Code(s): E87.2 - ACIDOSIS Status: Acute Priority: High Current Visit: Yes Onset Date: 05/13/17 Annotation/Comment:: Possible sepsis secondary to pneumonia as above. Tachycardia improved as above. Lactic acid should be repeated in about 6 hours. Continue IV fluids (8) COPD (chronic obstructive pulmonary disease) SNOMED Code(s): 57722297 Code(s): J44.9 - CHRONIC OBSTRUCTIVE PULMONARY DISEASE, UNSPECIFIED Status : Chronic Priority: High Current Visit: Yes Annotation/Comment:: Significant improvement in patient's symptoms with triple nebulizer treatment in the emergency room. Qualifiers: COPD type: COPD with acute lower respiratory infection Qualified Code(s): J44.0 - Chronic obstructive pulmonary disease with acute lower respiratory infection (9) Coronary artery disease SNOMED Code(s): 35738549 Code(s): I25.10 - ATHSCL HEART DISEASE OF [place] CORONARY ARTERY W/O ANG PCTRS Status: Chronic Priority: Medium Current Visit: Yes Annotation/ Comment:: Tachycardia improved with aggressive treatment as above. Tachycardia likely secondary to borderline possible sepsis, and dehydration no chest pain or anginal type symptoms. Only minimal BNP elevation with no clinical evidence of CHF. Note previous [place] with PTCA and stent as above Qualifiers: Coronary Disease-Associated Artery/Lesion type: [place] artery [place] vs. transplanted heart: [place] heart Associated angina: without angina Qualified Code(s): I25.10 - Atherosclerotic heart disease of [place] coronary artery without angina pectoris (10) Hypokalemia SNOMED Code(s): 35342642 Code(s): E87.6 - HYPOKALEMIA Status: Chronic Priority: High Current Visit: Yes Onset Date: 05/13/17 Annotation/Comment:: Significant hypokalemia likely secondary to recurrent emesis as above. IV bolus of lactated Ringer's initiated in the emergency room with mid continue both oral and IV potassium supplementation and IV fluids (11) Tobacco abuse counseling SNOMED Code(s): 737869719, 238879109 Code(s): Z71.6 - TOBACCO ABUSE COUNSELING Status: Chronic Priority: Medium Current Visit: Yes Annotation/Comment:: Tobacco cessation strongly encouraged with tobacco cessation information to be provided at discharge - Problem List Review Problem List Initiated/Reviewed/Updated: Yes - Assessment/Plan Admission H&P: Please use this note as an admission H&P Assessment:: As above Plan: Continue IV fluids. Repeat lab work to follow lactic acid, K, and trends with CBC/Chem. UA requested. Rocephin/Zithromax for coverage of potential bacterial involvement with respiratory symptoms.
[2017-05-13] MEDS ORDERED: Ondansetron 4 MG/2 ML SDV IVPUSH PRN (12:13)
[2017-05-13] MEDS ORDERED: Sodium Chloride 0.9% 1,000 ML IV ONE ×2 (12:30→17:32)
[2017-05-13] MEDS ORDERED: Potassium Chloride 10 MEQ in Premix Bag 1 BAG IV ONE ×5 (12:45→15:00)
[2017-05-13] MEDS: Sodium Chloride 0.9% 1,000 ML IV SCH ×4 (13:22→23:18)
[2017-05-13] MEDS: Azithromycin 500 MG in Sodium Chloride 0.9% 250 ML IV SCH (13:25)
[2017-05-13] MEDS: Albuterol/Ipratropium 3.0-0.5 MG/3 ML Neb Soln NEB SCH ×2 (13:27→20:55)
[2017-05-13] MEDS: Nicotine 21 MG/24 Hr Patch TRDERM SCH (13:28)
[2017-05-13] MEDS: oxyCODONE 5 MG Tab PO SCH ×4 (13:28→23:17)
[2017-05-13] MEDS ORDERED: Sodium Chloride 0.9% 1,000 ML IV SCH (14:30)
[2017-05-13] MEDS: Sertraline 50 MG Tab PO SCH (17:25)
[2017-05-13] MEDS: Gabapentin 300 MG Cap PO SCH (17:25)
[2017-05-13] MEDS: busPIRone 15 MG Tab PO SCH (17:25)
[2017-05-13] MEDS: Carvedilol 6.25 MG Tab PO SCH (17:28)
[2017-05-13] MEDS ORDERED: Potassium Chloride 10 MEQ Tab.ER PO SCH ×2 (17:30→18:00)
[2017-05-13] MEDS: atorvaSTATin 10 MG Tab PO SCH (20:56)
[2017-05-13] MEDS: Pantoprazole 40 MG Vial IV SCH (20:57)
[2017-05-14] MEDS: Albuterol/Ipratropium 3.0-0.5 MG/3 ML Neb Soln NEB SCH ×4 (02:48→19:36)
[2017-05-14] MEDS: Sodium Chloride 0.9% 1,000 ML IV SCH (06:21)
[2017-05-14 07:48] LABS: CHLORIDE,CL 107 mmol/L (98-107); SODIUM,NA 142 mmol/L (136-145)
[2017-05-14] MEDS: oxyCODONE 5 MG Tab PO SCH ×5 (07:48→23:31)
[2017-05-14] MEDS: busPIRone 15 MG Tab PO SCH ×2 (07:51→18:06)
[2017-05-14] MEDS: Clopidogrel 75 MG Tab PO SCH (07:52)
[2017-05-14] MEDS: Gabapentin 300 MG Cap PO SCH ×3 (07:52→18:07)
[2017-05-14] MEDS: Nicotine 21 MG/24 Hr Patch TRDERM SCH (07:52)
[2017-05-14] MEDS: Sodium Chloride 0.9% 10 ML Syringe FLUSH PRN ×3 (07:53→19:45)
[2017-05-14] MEDS: Pantoprazole 40 MG Vial IV SCH ×2 (07:53→19:36)
[2017-05-14] MEDS: Sertraline 50 MG Tab PO SCH ×2 (07:55→18:07)
[2017-05-14] MEDS: Carvedilol 6.25 MG Tab PO SCH ×2 (08:11→17:23)
[2017-05-14] MEDS: Lisinopril 10 MG Tab PO SCH (08:12)
[2017-05-14] MEDS: cefTRIAXone 1 GM in Sodium Chloride 0.9% 100 ML IV SCH (10:16)
[2017-05-14] MEDS ORDERED: Potassium Chloride 20 MEQ Tab.ER PO ONE ×2 (11:11→15:30)
[2017-05-14] MEDS: Azithromycin 500 MG in Sodium Chloride 0.9% 250 ML IV SCH (13:21)
--- NOTE | 2017-05-14 15:37 | PCM.PN ---
- General Info Date of Service: 05/14/17 Admission Dx/Problem (Free Text): Hypokalemia, nausea/emesis, dehydration. Subjective Update: Feeling much better than yesterday. Able to eat lunch. Still feels fatigued. Cough is more prominent today. Functional Status: Reports: Pain Controlled, Tolerating Diet, Ambulating, Urinating. Denies: New Symptoms Pain Score: 0 - Review of Systems General: Reports: Weakness, Fatigue. Denies: Fever, Malaise, Chills, Night Sweats HEENT: Reports: No Symptoms Pulmonary: Reports: Cough. Denies: Shortness of Breath, Pleuritic Chest Pain, Sputum, Hemoptysis, Wheezing Cardiovascular: Reports: No Symptoms Gastrointestinal: Reports: Decreased Appetite, Diarrhea (once last night. No BM since then. ). Denies: Abdominal Pain, Constipation, Difficulty Swallowing, Hematochezia, Nausea, Vomiting Genitourinary: Reports: No Symptoms Musculoskeletal: Reports: No Symptoms Skin: Reports: No Symptoms Neurological: Reports: No Symptoms. Denies: Headache Psychiatric: Reports: No Symptoms - Patient Data Vitals - Most Recent: Last Vital Signs Temp 36.4 C 05/14/17 12:00 Pulse 94 05/14/17 12:00 Resp 18 05/14/17 12:00 BP 133/65 05/14/17 12:00 Pulse Ox 94 L 05/14/17 12:00 Weight - Most Recent: 110.042 kg I&O - Last 24 Hours: Intake & Output 05/14/17 05/14/17 05/14/17 06:59 14:59 22:59 Intake Total 3460 2973 242 Output Total 750 800 Balance 2710 2173 242 Lab Results Last 24 Hours: Laboratory Results - last 24 hr 05/13/17 05/13/17 05/13/17 Range/Units 12:25 16:40 16:40 WBC (4.0-10.2) K/uL RBC (3.77-5.09) M/uL Hgb (11.7-15.5) g/dL Hct (34.0-46.0) % MCV (84.0-98.0) fL MCH (28.2-33.3) pg MCHC (31.7-36.0) g/dL RDW (11.2-14.1) % Plt Count (150-350) K/uL Neut % (Auto) (45.0-80.0) % Lymph % (Auto) (10.0-50.0) % [place] % (Auto) (2.0-14.0) % Eos % (Auto) (0.0-5.0) % Baso % (Auto) (0.0-2.0) % Neut # (Auto) (1.40-7.00) K/uL Lymph # (Auto) (0.50-3.50) K/uL [place] # (Auto) (0.00-1.00) K/uL Eos # (Auto) (0.00-0.50) K/uL Baso # (Auto) (0.00-0.20) K/uL Sodium (136-145) mmol/L Potassium 3.1 L (3.5-5.1) mmol/L Chloride (98-107) mmol/L Carbon Dioxide (21.0-32.0) mmol/L BUN (7-18) mg/dL Creatinine (0.51-1.17) mg/dL Est Cr Clr Drug Dosing mL/min Estimated GFR (MDRD) mL/min Glucose (74-106) mg/dL POC Glucose (65-110) mg/dl Hemoglobin A1c (4.3-5.7) % Lactic Acid 2.4 H (0.4-2.0) mmol/L Calcium (8.5-10.1) mg/dL Total Bilirubin (0.2-1.0) mg/dL AST (15-37) U/L ALT (12-78) U/L Alkaline Phosphatase (46-116) IU/L Total Protein (6.4-8.2) g/dL Albumin (3.4-5.0) g/dL Specimen Type Urincc Urine Color Yellow Urine Appearance Clear Urine pH 6.0 (5.0-9.0) Ur Specific [place] <= 1.005 (1.005-1.030) Urine Protein Negative (NEGATIVE) mg/dL Urine Glucose (UA) Negative (NEGATIVE) mg/dL Urine Ketones Negative (NEGATIVE) mg/dL Urine Occult Blood Trace-intact H (NEGATIVE) Urine Nitrite Negative (NEGATIVE) Urine Bilirubin Negative (NEGATIVE) Urine Urobilinogen 1.0 (0.2-1.0) E.U./dL Ur Leukocyte Esterase Negative (NEGATIVE) Urine RBC 0-5 /HPF Urine WBC 0-5 /HPF Ur Epithelial Cells Rare /LPF Urine Bacteria Rare (NONE TO FEW) /HPF 05/13/17 05/13/17 05/14/17 Range/Units 16:40 20:53 07:24 WBC (4.0-10.2) K/uL RBC (3.77-5.09) M/uL Hgb (11.7-15.5) g/dL Hct (34.0-46.0) % MCV (84.0-98.0) fL MCH (28.2-33.3) pg MCHC (31.7-36.0) g/dL RDW (11.2-14.1) % Plt Count (150-350) K/uL Neut % (Auto) (45.0-80.0) % Lymph % (Auto) (10.0-50.0) % [place] % (Auto) (2.0-14.0) % Eos % (Auto) (0.0-5.0) % Baso % (Auto) (0.0-2.0) % Neut # (Auto) (1.40-7.00) K/uL Lymph # (Auto) (0.50-3.50) K/uL [place] # (Auto) (0.00-1.00) K/uL Eos # (Auto) (0.00-0.50) K/uL Baso # (Auto) (0.00-0.20) K/uL Sodium (136-145) mmol/L Potassium (3.5-5.1) mmol/L Chloride (98-107) mmol/L Carbon Dioxide (21.0-32.0) mmol/L BUN (7-18) mg/dL Creatinine (0.51-1.17) mg/dL Est Cr Clr Drug Dosing mL/min Estimated GFR (MDRD) mL/min Glucose (74-106) mg/dL POC Glucose 91 101 (65-110) mg/dl Hemoglobin A1c 5.6 (4.3-5.7) % Lactic Acid (0.4-2.0) mmol/L Calcium (8.5-10.1) mg/dL Total Bilirubin (0.2-1.0) mg/dL AST (15-37) U/L ALT (12-78) U/L Alkaline Phosphatase (46-116) IU/L Total Protein (6.4-8.2) g/dL Albumin (3.4-5.0) g/dL Specimen Type Urine Color Urine Appearance Urine pH (5.0-9.0) Ur Specific [place] (1.005-1.030) Urine Protein (NEGATIVE) mg/dL Urine Glucose (UA) (NEGATIVE) mg/dL Urine Ketones (NEGATIVE) mg/dL Urine Occult Blood (NEGATIVE) Urine Nitrite (NEGATIVE) Urine Bilirubin (NEGATIVE) Urine Urobilinogen (0.2-1.0) E.U./dL Ur Leukocyte Esterase (NEGATIVE) Urine RBC /HPF Urine WBC /HPF Ur Epithelial Cells /LPF Urine Bacteria (NONE TO FEW) /HPF 05/14/17 05/14/17 05/14/17 Range/Units 07:25 07:25 07:25 WBC 14.5 H (4.0-10.2) K/uL RBC 3.87 (3.77-5.09) M/uL Hgb 12.0 D (11.7-15.5) g/dL Hct 35.5 (34.0-46.0) % MCV 91.7 (84.0-98.0) fL MCH 31.0 (28.2-33.3) pg MCHC 33.8 (31.7-36.0) g/dL RDW 15.2 H (11.2-14.1) % Plt Count 105 L (150-350) K/uL Neut % (Auto) 90.3 H (45.0-80.0) % Lymph % (Auto) 5.6 L (10.0-50.0) % Casey % (Auto) 3.9 (2.0-14.0) % Eos % (Auto) 0.1 (0.0-5.0) % Baso % (Auto) 0.1 (0.0-2.0) % Neut # (Auto) 13.13 H (1.40-7.00) K/uL Lymph # (Auto) 0.82 (0.50-3.50) K/uL Casey # (Auto) 0.56 (0.00-1.00) K/uL Eos # (Auto) 0.01 (0.00-0.50) K/uL Baso # (Auto) 0.01 (0.00-0.20) K/uL Sodium 142 (136-145) mmol/L Potassium 3.4 L (3.5-5.1) mmol/L Chloride 107 (98-107) mmol/L Carbon Dioxide 24.4 (21.0-32.0) mmol/L BUN 18 (7-18) mg/dL Creatinine 0.62 (0.51-1.17) mg/dL Est Cr Clr Drug Dosing 91.17 mL/min Estimated GFR (MDRD) > 60 mL/min Glucose 112 H (74-106) mg/dL POC Glucose (65-110) mg/dl Hemoglobin A1c (4.3-5.7) % Lactic Acid 1.3 (0.4-2.0) mmol/L Calcium 8.2 L (8.5-10.1) mg/dL Total Bilirubin 0.4 (0.2-1.0) mg/dL AST 22 (15-37) U/L ALT 33 (12-78) U/L Alkaline Phosphatase 96 (46-116) IU/L Total Protein 5.9 L (6.4-8.2) g/dL Albumin 2.0 L (3.4-5.0) g/dL Specimen Type Urine Color Urine Appearance Urine pH (5.0-9.0) Ur Specific [place] (1.005-1.030) Urine Protein (NEGATIVE) mg/dL Urine Glucose (UA) (NEGATIVE) mg/dL Urine Ketones (NEGATIVE) mg/dL Urine Occult Blood (NEGATIVE) Urine Nitrite (NEGATIVE) Urine Bilirubin (NEGATIVE) Urine Urobilinogen (0.2-1.0) E.U./dL Ur Leukocyte Esterase (NEGATIVE) Urine RBC /HPF Urine WBC /HPF Ur Epithelial Cells /LPF Urine Bacteria (NONE TO FEW) /HPF Med Orders - Current: Current Medications Acetaminophen (Tylenol) 650 mg PO Q4H PRN PRN Reason: Pain/Fever Last Admin: 05/13/17 10:20 Dose: 650 mg Albuterol/Ipratropium (Duoneb 3.0-0.5 Mg/3 Ml) 3 ml NEB Q6HRRT TRISTIN Last Admin: 05/14/17 13:21 Dose: 3 ml Atorvastatin Calcium (Lipitor) 20 mg PO BEDTIME [facility] Last Admin: 05/13/17 20:56 Dose: 20 mg Buspirone HCl (Buspar) 15 mg PO BID [facility] Last Admin: 05/14/17 07:51 Dose: 15 mg Carvedilol (Coreg) 6.25 mg PO BIDMEALS [facility] Last Admin: 05/14/17 08:11 Dose: Not Given Clopidogrel Bisulfate (Plavix) 75 mg PO DAILY [facility] Last Admin: 05/14/17 07:52 Dose: 75 mg Gabapentin (Neurontin) 300 mg PO TID [facility] Last Admin: 05/14/17 12:38 Dose: 300 mg Azithromycin 500 mg/ Sodium (Chloride) 250 mls @ 250 mls/hr IV Q24H [facility] Last Admin: 05/14/17 13:21 Dose: 250 mls/hr Ceftriaxone Sodium 1 gm/ (Sodium Chloride) 100 mls @ 200 mls/hr IV Q24H [facility] Last Admin: 05/14/17 10:16 Dose: 200 mls/hr Lisinopril (Prinivil) 30 mg PO DAILY [facility] Last Admin: 05/14/17 08:12 Dose: Not Given Nicotine (Habitrol) 21 mg TRDERM DAILY [facility] Last Admin: 05/14/17 07:52 Dose: 21 mg Ondansetron HCl (Zofran) 4 mg IVPUSH Q6H PRN PRN Reason: Nausea/Vomiting Last Admin: 05/13/17 13:29 Dose: 4 mg Oxycodone HCl (Oxycodone) 10 mg PO 5XDRT [facility] Last Admin: 05/14/17 11:42 Dose: 10 mg Pantoprazole Sodium (Protonix Iv) 40 mg IV Q12HR [facility] Last Admin: 05/14/17 07:53 Dose: 40 mg Sertraline HCl (Zoloft) 50 mg PO BID@0800,1800 [facility] Last Admin: 05/14/17 07:55 Dose: 50 mg Sodium Chloride (Saline Flush) 10 ml FLUSH ASDIRECTED PRN PRN Reason: Keep Vein Open Last Admin: 05/14/17 14:40 Dose: 10 ml Discontinued Medications Albuterol/Ipratropium (Duoneb 3.0-0.5 Mg/3 Ml) 3 ml NEB ONETIME ONE Stop: 05/13/17 09:35 Last Admin: 05/13/17 10:00 Dose: 3 ml Budesonide (Pulmicort) 0.5 mg NEB ONETIME ONE Stop: 05/13/17 09:35 Last Admin: 05/13/17 10:00 Dose: 0.5 mg Ceftriaxone Sodium (Rocephin) 1 gm IV ONETIME ONE Stop: 05/13/17 09:35 Last Admin: 05/13/17 10:02 Dose: 1 gm Famotidine (Pepcid) 40 mg IVPUSH ONETIME ONE Stop: 05/13/17 09:47 Last Admin: 05/13/17 10:02 Dose: 40 mg Lactated Ringer's (Ringers, Lactated) 1,000 mls @ 999 mls/hr IV .BOLUS ONE Stop: 05/13/17 10:46 Last Admin: 05/13/17 10:02 Dose: 999 mls/hr Sodium Chloride (Normal Saline) 1,000 mls @ 999 mls/hr IV .BOLUS ONE Stop: 05/13/17 13:30 Last Admin: 05/13/17 12:15 Dose: 999 mls/hr Sodium Chloride (Normal Saline) 1,000 mls @ 150 mls/hr IV ASDIRECTED [facility] Potassium Chloride 10 meq/ (Premix) 50 mls @ 50 mls/hr IV Q1H ONE Stop: 05/13/17 13:44 Potassium Chloride 10 meq/ (Premix) 50 mls @ 50 mls/hr IV ONETIME ONE Stop: 05/13/17 13:44 Last Admin: 05/13/17 13:28 Dose: 50 mls/hr Potassium Chloride 10 meq/ (Premix) 50 mls @ 50 mls/hr IV ONETIME ONE Stop: 05/13/17 15:59 Last Admin: 05/13/17 17:35 Dose: Not Given Sodium Chloride (Normal Saline) 1,000 mls @ 150 mls/hr IV ASDIRECTED TRISTIN Last Admin: 05/14/17 06:21 Dose: 150 mls/hr Sodium Chloride (Normal Saline) 1,000 mls @ 500 mls/hr IV .BOLUS ONE Stop: 05/13/17 19:31 Last Admin: 05/13/17 17:59 Dose: 500 mls/hr Iopamidol (Isovue-370 (76%)) 100 ml IVPUSH ONETIME ONE Stop: 05/13/17 10:30 Last Admin: 05/13/17 10:52 Dose: 100 ml Magnesium Oxide (Magnesium Oxide) 400 mg PO ONETIME ONE Stop: 05/13/17 11:13 Last Admin: 05/13/17 11:44 Dose: 400 mg Potassium Chloride (Klor-Con M20) 40 meq PO ONETIME ONE Stop: 05/13/17 11:13 Last Admin: 05/13/17 11:44 Dose: 40 meq Potassium Chloride (Klor-Con 10) 20 meq PO BIDMEALS TRISTIN Potassium Chloride (Klor-Con M20) 20 meq PO ONETIME ONE Stop: 05/13/17 15:01 Last Admin: 05/13/17 15:43 Dose: 20 meq Potassium Chloride (Klor-Con 10) 20 meq PO TID TRISTIN Potassium Chloride (Klor-Con M20) 20 meq PO ONETIME ONE Stop: 05/13/17 19:01 Last Admin: 05/13/17 18:26 Dose: 20 meq Potassium Chloride (Klor-Con M20) 20 meq PO ONETIME ONE Stop: 05/14/17 11:12 Last Admin: 05/14/17 11:43 Dose: 20 meq Potassium Chloride (Klor-Con M20) 20 meq PO ONETIME ONE Stop: 05/14/17 15:31 - Exam Quality Assessment: DVT Prophylaxis (Patient on Plavix. Has reduction in platelets. ) General: Alert, Oriented, Cooperative, No Acute Distress HEENT: Pupils Equal, Pupils Reactive, EOMI, Mucous Membr. Moist/[place] Neck: Supple Lungs: Clear to Auscultation, Normal Respiratory Effort Cardiovascular: Regular Rate, Regular Rhythm GI/Abdominal Exam: Normal Bowel Sounds, Soft, Non-Tender, No Distention (Female) Exam: Deferred Back Exam: Normal Inspection Extremities: Normal Inspection, Normal Range of Motion, Non-Tender, No Pedal Edema, Normal Capillary Refill Peripheral Pulses: 2+: Radial (L), Radial (R) Skin: Warm, Dry, Intact Neurological: No New Focal Deficit Psy/Mental Status: Alert, Normal Affect, Suicidal Ideation - Problem List & Annotations (1) Abdominal pain SNOMED Code(s): 74577385 Code(s): R10.9 - UNSPECIFIED ABDOMINAL PAIN Status: Acute Priority: High Current Visit: Yes Onset Date: 05/13/17 Qualifiers: Abdominal location: generalized Qualified Code(s): R10.84 - Generalized abdominal pain Annotation/Comment:: Unspecific abdominal pain, nausea, and emesis likely secondary to viral GE. Improving (2) D-dimer, elevated SNOMED Code(s): 800255902 Code(s): R79.89 - OTHER SPECIFIED ABNORMAL FINDINGS OF BLOOD CHEMISTRY Status: Acute Priority: High Current Visit: Yes Onset Date: 05/13/17 Annotation/Comment:: Negative CTA of chest. (3) Dehydration SNOMED Code(s): 50519241 Code(s): E86.0 - DEHYDRATION Status: Acute Priority: High Current Visit : Yes Onset Date: 05/13/17 Annotation/Comment:: Improved (4) Hyperglycemia SNOMED Code(s): 18010179 Code(s): R73.9 - HYPERGLYCEMIA, UNSPECIFIED Status: Acute Priority: Medium Current Visit: Yes Onset Date: 05/13/17 Annotation/Comment:: Improved. A1C under 6. (5) Hypoalbuminemia SNOMED Code(s): 918378655 Code(s): E88.09 - [facility] DISORDERS OF PLASMA-PROTEIN METABOLISM, NEC Status: Acute Priority: Medium Current Visit: Yes Onset Date: 05/13/17 Annotation/Comment:: High-protein Glucerna supplements as snacks recommended (6) Hypomagnesemia SNOMED Code(s): 687519588 Code(s): E83.42 - HYPOMAGNESEMIA Status: Acute Priority: Medium Current Visit: Yes Onset Date: 05/13/17 Annotation/Comment:: Recommend initiation of magnesium oxide (7) Lactic acid increased SNOMED Code(s): 84455619 Code(s): E87.2 - ACIDOSIS Status: Acute Priority: High Current Visit: Yes Onset Date: 05/13/17 Annotation/Comment:: Within normal range at this time (8) COPD (chronic obstructive pulmonary disease) SNOMED Code(s): 88894529 Code(s): J44.9 - CHRONIC OBSTRUCTIVE PULMONARY DISEASE, UNSPECIFIED Status : Chronic Priority: High Current Visit: Yes Qualifiers: COPD type: COPD with acute lower respiratory infection Qualified Code(s): J44.0 - Chronic obstructive pulmonary disease with acute lower respiratory infection Annotation/Comment:: Significant improvement in patient's symptoms with triple nebulizer treatment in the emergency room. (9) Coronary artery disease SNOMED Code(s): 28715490 Code(s): I25.10 - ATHSCL HEART DISEASE OF [place] CORONARY ARTERY W/O ANG PCTRS Status: Chronic Priority: Medium Current Visit: Yes Qualifiers: Coronary Disease-Associated Artery/Lesion type: [place] artery [place] vs. transplanted heart: [place] heart Associated angina: without angina Qualified Code(s): I25.10 - Atherosclerotic heart disease of [place] coronary artery without angina pectoris Annotation/Comment:: Tachycardia improved with aggressive treatment as above. Tachycardia likely secondary to borderline possible sepsis, and dehydration no chest pain or anginal type symptoms. Only minimal BNP elevation with no clinical evidence of CHF. Note previous IN with PTCA and stent as above (10) Hypokalemia SNOMED Code(s): 34605785 Code(s): E87.6 - HYPOKALEMIA Status: Chronic Priority: High Current Visit: Yes Onset Date: 05/13/17 Annotation/Comment:: Improved (11) Tobacco abuse counseling SNOMED Code(s): 720480947, 812189324 Code(s): Z71.6 - TOBACCO ABUSE COUNSELING Status: Chronic Priority: Medium Current Visit: Yes Annotation/Comment:: Tobacco cessation strongly encouraged with tobacco cessation information to be provided at discharge (12) Thrombocytopenia SNOMED Code(s): 186137029 Code(s): D69.6 - THROMBOCYTOPENIA, UNSPECIFIED Status: Acute Priority: Low Current Visit: Yes Annotation/Comment:: Uncertain as to how long patient has had below normal range of platelets. Further decrease noted today, likely dilutional given her dehydration initially yesterday and amount of IV fluids she has received since admission. - Problem List Review Problem List Initiated/Reviewed/Updated: Yes - My Orders Last 24 Hours: My Active Orders 05/13/17 17:30 Carvedilol [Coreg] 6.25 mg PO BIDMEALS 05/13/17 18:00 Gabapentin [Neurontin] 300 mg PO TID Sertraline [Zoloft] 50 mg PO BID@0800,1800 busPIRone [Buspar] 15 mg PO BID 05/13/17 18:15 Communication Order [RC] PRN 05/13/17 20:00 Pantoprazole [ProTONIX IV] 40 mg IV Q12HR atorvaSTATin [Lipitor] 20 mg PO BEDTIME 05/13/17 [employer] Diet [DIET] 05/14/17 08:00 Clopidogrel [Plavix] 75 mg PO DAILY Lisinopril [Prinivil] 30 mg PO DAILY 05/14/17 10:00 cefTRIAXone [Rocephin] 1 gm Sodium Chloride 0.9% [Normal Saline] 100 ml IV Q24H 05/14/17 19:00 POTASSIUM,K [CHEM] Routine 05/15/17 05:11 COMPREHENSIVE METABOLIC PN,CMP [CHEM] AM LACTIC ACID [CHEM] AM 05/15/17 05:15 CBC WITH AUTO DIFF [HEME] AM - Assessment Assessment:: Vomiting, dehydration, hypokalemia, cough. Suspect most likely due to viral illness, however given elevated lactic acid and initial clinic exam antibiotics initiated to cover for potential pneumonia. Significantly improved. Continues to have fatigue/weakness, but that is also improving. - Plan Plan:: Continue K supplementation. Continue IV antibiotics. Recheck labs in morning. Anticipate patient discharge tomorrow morning given improvement observed.
[2017-05-14] MEDS: Magnesium Oxide 400 MG Tab PO SCH (15:52)
[2017-05-14] MEDS: Acetaminophen 325 MG Tab PO PRN (17:24)
[2017-05-14] MEDS: atorvaSTATin 10 MG Tab PO SCH (19:35)
[2017-05-15] MEDS: Albuterol/Ipratropium 3.0-0.5 MG/3 ML Neb Soln NEB SCH ×5 (03:05→19:22)
[2017-05-15] MEDS: Carvedilol 6.25 MG Tab PO SCH ×3 (07:18→17:55)
[2017-05-15] MEDS: oxyCODONE 5 MG Tab PO SCH ×5 (07:19→23:06)
[2017-05-15] MEDS: Gabapentin 300 MG Cap PO SCH ×3 (07:19→17:55)
[2017-05-15] MEDS: Lisinopril 10 MG Tab PO SCH (07:20)
[2017-05-15] MEDS: Magnesium Oxide 400 MG Tab PO SCH (07:21)
[2017-05-15] MEDS: Sertraline 50 MG Tab PO SCH ×2 (07:21→17:55)
[2017-05-15] MEDS: Clopidogrel 75 MG Tab PO SCH (07:21)
[2017-05-15] MEDS: busPIRone 15 MG Tab PO SCH ×2 (07:21→17:55)
[2017-05-15] MEDS: Pantoprazole 40 MG Vial IV SCH ×2 (07:21→19:24)
[2017-05-15] MEDS: Acetaminophen 325 MG Tab PO PRN (07:25)
[2017-05-15] MEDS: Nicotine 21 MG/24 Hr Patch TRDERM SCH (08:26)
[2017-05-15 08:31] LABS: CHLORIDE,CL 103 mmol/L (98-107); SODIUM,NA 137 mmol/L (136-145)
[2017-05-15] MEDS: cefTRIAXone 1 GM in Sodium Chloride 0.9% 100 ML IV SCH (10:05)
[2017-05-15] MEDS: Azithromycin 500 MG in Sodium Chloride 0.9% 250 ML IV SCH (12:15)
--- NOTE | 2017-05-15 14:49 | PCM.PN ---
- General Info Date of Service: 05/15/17 Admission Dx/Problem (Free Text): Hypokalemia, nausea/emesis, dehydration. Subjective Update: Feeling much better than yesterday. Able to eat lunch. Still feels fatigued. Cough is more prominent today. Functional Status: Reports: Pain Controlled, Tolerating Diet, Ambulating, Urinating. Denies: New Symptoms Pain Score: 0 - Review of Systems General: Reports: Fever (yesterday), Fatigue. Denies: Malaise, Chills, Night Sweats HEENT: Reports: No Symptoms Pulmonary: Reports: Cough. Denies: Shortness of Breath, Sputum, Hemoptysis, Wheezing Cardiovascular: Reports: No Symptoms Gastrointestinal: Denies: Abdominal Pain, Diarrhea, Nausea, Vomiting Genitourinary: Reports: No Symptoms Musculoskeletal: Reports: No Symptoms (no acute pain changes from usual baseline ) Skin: Reports: No Symptoms Neurological: Reports: No Symptoms Psychiatric: Reports: No Symptoms - Patient Data Vitals - Most Recent: Last Vital Signs Temp 36.7 C 05/15/17 12:00 Pulse 76 05/15/17 12:00 Resp 16 05/15/17 12:00 BP 101/60 05/15/17 12:00 Pulse Ox 94 L 05/15/17 12:00 Weight - Most Recent: 110.042 kg I&O - Last 24 Hours: Intake & Output 05/14/17 05/15/17 05/15/17 22:59 06:59 14:59 Intake Total 762 200 Output Total 850 600 900 Balance -88 -600 -700 Lab Results Last 24 Hours: Laboratory Results - last 24 hr 05/14/17 05/14/17 05/14/17 Range/Units 11:41 17:01 19:10 WBC (4.0-10.2) K/uL RBC (3.77-5.09) M/uL Hgb (11.7-15.5) g/dL Hct (34.0-46.0) % MCV (84.0-98.0) fL MCH (28.2-33.3) pg MCHC (31.7-36.0) g/dL RDW (11.2-14.1) % Plt Count (150-350) K/uL Neut % (Auto) (45.0-80.0) % Lymph % (Auto) (10.0-50.0) % [place] % (Auto) (2.0-14.0) % Eos % (Auto) (0.0-5.0) % Baso % (Auto) (0.0-2.0) % Neut # (Auto) (1.40-7.00) K/uL Lymph # (Auto) (0.50-3.50) K/uL [place] # (Auto) (0.00-1.00) K/uL Eos # (Auto) (0.00-0.50) K/uL Baso # (Auto) (0.00-0.20) K/uL D-Dimer, Quantitative (0-400) ng/mL Sodium (136-145) mmol/L Potassium 4.0 (3.5-5.1) mmol/L Chloride (98-107) mmol/L Carbon Dioxide (21.0-32.0) mmol/L BUN (7-18) mg/dL Creatinine (0.51-1.17) mg/dL Est Cr Clr Drug Dosing mL/min Estimated GFR (MDRD) mL/min Glucose (74-106) mg/dL POC Glucose 111 H 92 (65-110) mg/dl Lactic Acid (0.4-2.0) mmol/L Calcium (8.5-10.1) mg/dL Total Bilirubin (0.2-1.0) mg/dL AST (15-37) U/L ALT (12-78) U/L Alkaline Phosphatase (46-116) IU/L Total Protein (6.4-8.2) g/dL Albumin (3.4-5.0) g/dL 05/14/17 05/15/17 05/15/17 Range/Units 23:30 07:00 07:00 WBC (4.0-10.2) K/uL RBC (3.77-5.09) M/uL Hgb (11.7-15.5) g/dL Hct (34.0-46.0) % MCV (84.0-98.0) fL MCH (28.2-33.3) pg MCHC (31.7-36.0) g/dL RDW (11.2-14.1) % Plt Count (150-350) K/uL Neut % (Auto) (45.0-80.0) % Lymph % (Auto) (10.0-50.0) % [place] % (Auto) (2.0-14.0) % Eos % (Auto) (0.0-5.0) % Baso % (Auto) (0.0-2.0) % Neut # (Auto) (1.40-7.00) K/uL Lymph # (Auto) (0.50-3.50) K/uL [place] # (Auto) (0.00-1.00) K/uL Eos # (Auto) (0.00-0.50) K/uL Baso # (Auto) (0.00-0.20) K/uL D-Dimer, Quantitative (0-400) ng/mL Sodium 137 (136-145) mmol/L Potassium 4.0 (3.5-5.1) mmol/L Chloride 103 (98-107) mmol/L Carbon Dioxide 24.2 (21.0-32.0) mmol/L BUN 12 (7-18) mg/dL Creatinine 0.58 (0.51-1.17) mg/dL Est Cr Clr Drug Dosing 97.30 mL/min Estimated GFR (MDRD) > 60 mL/min Glucose 102 (74-106) mg/dL POC Glucose 89 (65-110) mg/dl Lactic Acid 0.7 (0.4-2.0) mmol/L Calcium 8.5 (8.5-10.1) mg/dL Total Bilirubin 0.5 (0.2-1.0) mg/dL AST 17 (15-37) U/L ALT 28 (12-78) U/L Alkaline Phosphatase 90 (46-116) IU/L Total Protein 5.8 L (6.4-8.2) g/dL Albumin 1.9 L (3.4-5.0) g/dL 05/15/17 05/15/17 Range/Units 07:00 07:00 WBC 13.0 H (4.0-10.2) K/uL RBC 3.60 L (3.77-5.09) M/uL Hgb 11.1 L (11.7-15.5) g/dL Hct 33.1 L (34.0-46.0) % MCV 91.9 (84.0-98.0) fL MCH 30.8 (28.2-33.3) pg MCHC 33.5 (31.7-36.0) g/dL RDW 15.4 H (11.2-14.1) % Plt Count 117 L (150-350) K/uL Neut % (Auto) 84.2 H (45.0-80.0) % Lymph % (Auto) 8.6 L (10.0-50.0) % [place] % (Auto) 7.0 (2.0-14.0) % Eos % (Auto) 0.1 (0.0-5.0) % Baso % (Auto) 0.1 (0.0-2.0) % Neut # (Auto) 10.99 H (1.40-7.00) K/uL Lymph # (Auto) 1.12 (0.50-3.50) K/uL [place] # (Auto) 0.91 (0.00-1.00) K/uL Eos # (Auto) 0.01 (0.00-0.50) K/uL Baso # (Auto) 0.01 (0.00-0.20) K/uL D-Dimer, Quantitative 879 H (0-400) ng/mL Sodium (136-145) mmol/L Potassium (3.5-5.1) mmol/L Chloride (98-107) mmol/L Carbon Dioxide (21.0-32.0) mmol/L BUN (7-18) mg/dL Creatinine (0.51-1.17) mg/dL Est Cr Clr Drug Dosing mL/min Estimated GFR (MDRD) mL/min Glucose (74-106) mg/dL POC Glucose (65-110) mg/dl Lactic Acid (0.4-2.0) mmol/L Calcium (8.5-10.1) mg/dL Total Bilirubin (0.2-1.0) mg/dL AST (15-37) U/L ALT (12-78) U/L Alkaline Phosphatase (46-116) IU/L Total Protein (6.4-8.2) g/dL Albumin (3.4-5.0) g/dL Med Orders - Current: Current Medications Acetaminophen (Tylenol) 650 mg PO Q4H PRN PRN Reason: Pain/Fever Last Admin: 05/15/17 07:25 Dose: 650 mg Albuterol/Ipratropium (Duoneb 3.0-0.5 Mg/3 Ml) 3 ml NEB QIDRT [facility] Last Admin: 05/15/17 12:14 Dose: 3 ml Atorvastatin Calcium (Lipitor) 20 mg PO BEDTIME [facility] Last Admin: 05/14/17 19:35 Dose: 20 mg Buspirone HCl (Buspar) 15 mg PO BID [facility] Last Admin: 05/15/17 07:21 Dose: 15 mg Carvedilol (Coreg) 6.25 mg PO BIDMEALS [facility] Last Admin: 05/15/17 07:25 Dose: 6.25 mg Clopidogrel Bisulfate (Plavix) 75 mg PO DAILY [facility] Last Admin: 05/15/17 07:21 Dose: 75 mg Gabapentin (Neurontin) 300 mg PO TID [facility] Last Admin: 05/15/17 12:14 Dose: 300 mg Azithromycin 500 mg/ Sodium (Chloride) 250 mls @ 250 mls/hr IV Q24H [facility] Last Admin: 05/15/17 12:15 Dose: 250 mls/hr Ceftriaxone Sodium 1 gm/ (Sodium Chloride) 100 mls @ 200 mls/hr IV Q24H [facility] Last Admin: 05/15/17 10:05 Dose: 200 mls/hr Lisinopril (Prinivil) 30 mg PO DAILY [facility] Last Admin: 05/15/17 07:20 Dose: 30 mg Magnesium Oxide (Magnesium Oxide) 400 mg PO DAILY [facility] Last Admin: 05/15/17 07:21 Dose: 400 mg Nicotine (Habitrol) 21 mg TRDERM DAILY [facility] Last Admin: 05/15/17 08:26 Dose: 21 mg Ondansetron HCl (Zofran) 4 mg IVPUSH Q6H PRN PRN Reason: Nausea/Vomiting Last Admin: 05/13/17 13:29 Dose: 4 mg Oxycodone HCl (Oxycodone) 10 mg PO 5XDRT [facility] Last Admin: 05/15/17 10:05 Dose: 10 mg Pantoprazole Sodium (Protonix Iv) 40 mg IV Q12HR [facility] Last Admin: 05/15/17 07:21 Dose: 40 mg Sertraline HCl (Zoloft) 50 mg PO BID@0800,1800 [facility] Last Admin: 05/15/17 07:21 Dose: 50 mg Sodium Chloride (Saline Flush) 10 ml FLUSH ASDIRECTED PRN PRN Reason: Keep Vein Open Last Admin: 05/14/17 19:45 Dose: 10 ml Discontinued Medications Albuterol/Ipratropium (Duoneb 3.0-0.5 Mg/3 Ml) 3 ml NEB ONETIME ONE Stop: 05/13/17 09:35 Last Admin: 05/13/17 10:00 Dose: 3 ml Albuterol/Ipratropium (Duoneb 3.0-0.5 Mg/3 Ml) 3 ml NEB Q6HRRT [facility] Last Admin: 05/15/17 03:05 Dose: Not Given Budesonide (Pulmicort) 0.5 mg NEB ONETIME ONE Stop: 05/13/17 09:35 Last Admin: 05/13/17 10:00 Dose: 0.5 mg Ceftriaxone Sodium (Rocephin) 1 gm IV ONETIME ONE Stop: 05/13/17 09:35 Last Admin: 05/13/17 10:02 Dose: 1 gm Famotidine (Pepcid) 40 mg IVPUSH ONETIME ONE Stop: 05/13/17 09:47 Last Admin: 05/13/17 10:02 Dose: 40 mg Lactated Ringer's (Ringers, Lactated) 1,000 mls @ 999 mls/hr IV .BOLUS ONE Stop: 05/13/17 10:46 Last Admin: 05/13/17 10:02 Dose: 999 mls/hr Sodium Chloride (Normal Saline) 1,000 mls @ 999 mls/hr IV .BOLUS ONE Stop: 05/13/17 13:30 Last Admin: 05/13/17 12:15 Dose: 999 mls/hr Sodium Chloride (Normal Saline) 1,000 mls @ 150 mls/hr IV ASDIRECTED [facility] Potassium Chloride 10 meq/ (Premix) 50 mls @ 50 mls/hr IV Q1H ONE Stop: 05/13/17 13:44 Potassium Chloride 10 meq/ (Premix) 50 mls @ 50 mls/hr IV ONETIME ONE Stop: 05/13/17 13:44 Last Admin: 05/13/17 13:28 Dose: 50 mls/hr Potassium Chloride 10 meq/ (Premix) 50 mls @ 50 mls/hr IV ONETIME ONE Stop: 05/13/17 15:59 Last Admin: 05/13/17 17:35 Dose: Not Given Sodium Chloride (Normal Saline) 1,000 mls @ 150 mls/hr IV ASDIRECTED [facility] Last Admin: 05/14/17 06:21 Dose: 150 mls/hr Sodium Chloride (Normal Saline) 1,000 mls @ 500 mls/hr IV .BOLUS ONE Stop: 05/13/17 19:31 Last Admin: 05/13/17 17:59 Dose: 500 mls/hr Iopamidol (Isovue-370 (76%)) 100 ml IVPUSH ONETIME ONE Stop: 05/13/17 10:30 Last Admin: 05/13/17 10:52 Dose: 100 ml Magnesium Oxide (Magnesium Oxide) 400 mg PO ONETIME ONE Stop: 05/13/17 11:13 Last Admin: 05/13/17 11:44 Dose: 400 mg Potassium Chloride (Klor-Con M20) 40 meq PO ONETIME ONE Stop: 05/13/17 11:13 Last Admin: 05/13/17 11:44 Dose: 40 meq Potassium Chloride (Klor-Con 10) 20 meq PO BIDMEALS [facility] Potassium Chloride (Klor-Con M20) 20 meq PO ONETIME ONE Stop: 05/13/17 15:01 Last Admin: 05/13/17 15:43 Dose: 20 meq Potassium Chloride (Klor-Con 10) 20 meq PO TID [facility] Potassium Chloride (Klor-Con M20) 20 meq PO ONETIME ONE Stop: 05/13/17 19:01 Last Admin: 05/13/17 18:26 Dose: 20 meq Potassium Chloride (Klor-Con M20) 20 meq PO ONETIME ONE Stop: 05/14/17 11:12 Last Admin: 05/14/17 11:43 Dose: 20 meq Potassium Chloride (Klor-Con M20) 20 meq PO ONETIME ONE Stop: 05/14/17 15:31 Last Admin: 05/14/17 15:48 Dose: 20 meq - Exam Quality Assessment: DVT Prophylaxis General: Alert, Oriented, Cooperative, No Acute Distress HEENT: Pupils Equal, Pupils Reactive, EOMI, Mucous Membr. Moist/[place] Neck: Supple Lungs: Normal Respiratory Effort, Other (scattered coarse breath sounds when patient coughs). No: Decreased Breath Sounds, Crackles, Rales, Rhonchi, Rub, Stridor, Wheezing Cardiovascular: Regular Rate, Regular Rhythm GI/Abdominal Exam: Normal Bowel Sounds, Soft, Non-Tender, No Distention (Female) Exam: Deferred Back Exam: Normal Inspection Extremities: Normal Inspection, Normal Range of Motion, Non-Tender, No Pedal Edema, Normal Capillary Refill Peripheral Pulses: 2+: Radial (L), Radial (R) Skin: Warm, Dry, Intact Neurological: No New Focal Deficit Psy/Mental Status: Alert, Normal Affect, Normal Mood - Problem List & Annotations (1) Abdominal pain SNOMED Code(s): 92832662 Code(s): R10.9 - UNSPECIFIED ABDOMINAL PAIN Status: Acute Priority: High Current Visit: Yes Onset Date: 05/13/17 Qualifiers: Abdominal location: generalized Qualified Code(s): R10.84 - Generalized abdominal pain Annotation/Comment:: Improved (2) Elevated WBC count SNOMED Code(s): 775136560 Code(s): D72.829 - ELEVATED WHITE BLOOD CELL COUNT, UNSPECIFIED Status: Acute Priority: Medium Current Visit: Yes Qualifiers: Leukocytosis type: unspecified Qualified Code(s): D72.829 - Elevated white blood cell count, unspecified Annotation/Comment:: Improved today. Predominantly Neutrophils. Based on initial history, patient appeared to have more of a gastroenteritis presentation. Today lab noted that blood culture is positive but that it currently appears to be more like a contaminant. No specific organism identified at this time. (3) D-dimer, elevated SNOMED Code(s): 294839621 Code(s): R79.89 - OTHER SPECIFIED ABNORMAL FINDINGS OF BLOOD CHEMISTRY Status: Acute Priority: High Current Visit: Yes Onset Date: 05/13/17 Annotation/Comment:: Negative CTA of chest. (4) Dehydration SNOMED Code(s): 93320955 Code(s): E86.0 - DEHYDRATION Status: Acute Priority: High Current Visit : Yes Onset Date: 05/13/17 Annotation/Comment:: Improved (5) Hyperglycemia SNOMED Code(s): 05843860 Code(s): R73.9 - HYPERGLYCEMIA, UNSPECIFIED Status: Acute Priority: Medium Current Visit: Yes Onset Date: 05/13/17 Annotation/Comment:: Improved. A1C under 6. (6) Hypoalbuminemia SNOMED Code(s): 061842174 Code(s): E88.09 - OTH DISORDERS OF PLASMA-PROTEIN METABOLISM, NEC Status: Acute Priority: Medium Current Visit: Yes Onset Date: 05/13/17 Annotation/Comment:: High-protein Glucerna supplements as snacks recommended (7) Hypomagnesemia SNOMED Code(s): 774445707 Code(s): E83.42 - HYPOMAGNESEMIA Status: Acute Priority: Medium Current Visit: Yes Onset Date: 05/13/17 Annotation/Comment:: Magnesium Oxide (8) Lactic acid increased SNOMED Code(s): 02672983 Code(s): E87.2 - ACIDOSIS Status: Acute Priority: High Current Visit: Yes Onset Date: 05/13/17 Annotation/Comment:: Within normal range at this time (9) COPD (chronic obstructive pulmonary disease) SNOMED Code(s): 49298484 Code(s): J44.9 - CHRONIC OBSTRUCTIVE PULMONARY DISEASE, UNSPECIFIED Status : Chronic Priority: High Current Visit: Yes Qualifiers: COPD type: COPD with acute lower respiratory infection Qualified Code(s): J44.0 - Chronic obstructive pulmonary disease with acute lower respiratory infection Annotation/Comment:: Significant improvement in patient's symptoms with triple nebulizer treatment in the emergency room. (10) Coronary artery disease SNOMED Code(s): 47699076 Code(s): I25.10 - ATHSCL HEART DISEASE OF [place] CORONARY ARTERY W/O ANG PCTRS Status: Chronic Priority: Medium Current Visit: Yes Qualifiers: Coronary Disease-Associated Artery/Lesion type: false pass artery [place] vs. transplanted heart: false pass heart Associated angina: without angina Qualified Code(s): I25.10 - Atherosclerotic heart disease of false pass coronary artery without angina pectoris Annotation/Comment:: Tachycardia improved with aggressive treatment as above. Tachycardia likely secondary to borderline possible sepsis, and dehydration no chest pain or anginal type symptoms. Only minimal BNP elevation with no clinical evidence of CHF. Note previous MT with PTCA and stent as above (11) Hypokalemia SNOMED Code(s): 74576798 Code(s): E87.6 - HYPOKALEMIA Status: Chronic Priority: High Current Visit: Yes Onset Date: 05/13/17 Annotation/Comment:: Improved (12) Tobacco abuse counseling SNOMED Code(s): 729903012, 130115467 Code(s): Z71.6 - TOBACCO ABUSE COUNSELING Status: Chronic Priority: Medium Current Visit: Yes Annotation/Comment:: Tobacco cessation strongly encouraged with tobacco cessation information to be provided at discharge (13) Thrombocytopenia SNOMED Code(s): 250118857 Code(s): D69.6 - THROMBOCYTOPENIA, UNSPECIFIED Status: Acute Priority: Low Current Visit: Yes Annotation/Comment:: Uncertain as to how long patient has had below normal range of platelets. Further decrease noted today, likely dilutional given her dehydration initially yesterday and amount of IV fluids she has received since admission. - Problem List Review Problem List Initiated/Reviewed/Updated: Yes - My Orders Last 24 Hours: My Active Orders 05/14/17 16:00 Magnesium Oxide 400 mg PO DAILY 05/15/17 06:30 CXR [Chest 2V] [CR] Routine 05/15/17 08:00 Vital Signs [RC] QID Albuterol/Ipratropium [DuoNeb 3.0-0.5 MG/3 ML] 3 ml NEB QIDRT - Assessment Assessment:: Vomiting, dehydration, hypokalemia, cough. Suspect most likely due to viral illness, however given elevated lactic acid and initial clinic exam antibiotics initiated to cover for potential pneumonia. Significantly improved. Continues to have fatigue/weakness, but that is also improving. Did spike fever yesterday afternoon. Has not done so today. Vital signs stable. Blood culture appears to be growing an as-yet unidentified organism. Lab staff feels like this could be a contaminant. Chest xray repeated today. No acute changes/infiltrates identified. - Plan Plan:: Continue IV antibiotics. Observe for any additional fevers. Pending identification of organism growing in blood cultures. Hopefully more will be known about that tomorrow and will be used in planning for outpatient antibiotics once patient is discharged home. Until then continue current IV antibiotic therapy.
[2017-05-15] MEDS: atorvaSTATin 10 MG Tab PO SCH (19:23)
[2017-05-15] MEDS: Sodium Chloride 0.9% 10 ML Syringe FLUSH PRN (19:27)
[2017-05-16] MEDS: oxyCODONE 5 MG Tab PO SCH ×2 (07:38→11:07)
[2017-05-16] MEDS: Albuterol/Ipratropium 3.0-0.5 MG/3 ML Neb Soln NEB SCH ×2 (07:40→11:08)
[2017-05-16] MEDS: busPIRone 15 MG Tab PO SCH (07:40)
[2017-05-16] MEDS: Carvedilol 6.25 MG Tab PO SCH (07:40)
[2017-05-16] MEDS: Magnesium Oxide 400 MG Tab PO SCH (07:41)
[2017-05-16] MEDS: Nicotine 21 MG/24 Hr Patch TRDERM SCH (07:41)
[2017-05-16] MEDS: Gabapentin 300 MG Cap PO SCH ×2 (07:41→11:07)
[2017-05-16] MEDS: Pantoprazole 40 MG Vial IV SCH (07:42)
[2017-05-16] MEDS: Sertraline 50 MG Tab PO SCH (07:42)
[2017-05-16] MEDS: Lisinopril 10 MG Tab PO SCH (07:42)
[2017-05-16] MEDS: Clopidogrel 75 MG Tab PO SCH (07:42)
[2017-05-16] MEDS: Sodium Chloride 0.9% 10 ML Syringe FLUSH PRN (07:45)
[2017-05-16] MEDS: cefTRIAXone 1 GM in Sodium Chloride 0.9% 100 ML IV SCH (11:07)
[2017-05-16 12:38] LABS: CHLORIDE,CL 102 mmol/L (98-107); SODIUM,NA 138 mmol/L (136-145)
--- NOTE | 2017-05-16 13:04 | PCM.DCSUM1 ---
Discharge Summary - Hospital Course Brief History: Patient admitted after exeriencing emesis, dehydration, generalized achiness, abdominal pain, and increased SOB. - Discharge Data Discharge Date: 05/16/17 Discharge Disposition: Home, Self-Care 01 Condition: Good - Discharge Diagnosis/Problem(s) (1) Abdominal pain SNOMED Code(s): 60667730 ICD Code: R10.9 - UNSPECIFIED ABDOMINAL PAIN Status: Acute Priority: High Current Visit: Yes Onset Date: 05/13/17 Problem Details: Improved. Suspect secondary to viral gastroenteritis. Qualifiers: Abdominal location: generalized Qualified Code(s): R10.84 - Generalized abdominal pain (2) Elevated WBC count SNOMED Code(s): 570399460 ICD Code: D72.829 - ELEVATED WHITE BLOOD CELL COUNT, UNSPECIFIED Status: Acute Priority: Medium Current Visit: Yes Problem Details: Based on initial history, patient appeared to have more of a gastroenteritis presentation. Initially normal white count. Has gradually increased since arrival. May in part be due to steroid component of DuoNebs that have been given regularly. Patient currently afebrile and continues to feel improved. Qualifiers: Leukocytosis type: unspecified Qualified Code(s): D72.829 - Elevated white blood cell count, unspecified (3) D-dimer, elevated SNOMED Code(s): 993865769 ICD Code: R79.89 - OTHER SPECIFIED ABNORMAL FINDINGS OF BLOOD CHEMISTRY Status: Acute Priority: High Current Visit: Yes Onset Date: 05/13/17 Problem Details: Negative CTA of chest. DDimer trended significantly downward after admission (4) Dehydration SNOMED Code(s): 70398754 ICD Code: E86.0 - DEHYDRATION Status: Acute Priority: High Current Visit: Yes Onset Date: 05/13/17 Problem Details: improved (5) Hyperglycemia SNOMED Code(s): 19072809 ICD Code: R73.9 - HYPERGLYCEMIA, UNSPECIFIED Status: Acute Priority: Medium Current Visit: Yes Onset Date: 05/13/17 Problem Details: Suspect hyperglycemia initially noted was secondary to patient's acute illness. Quickly normalized. A1C under 6. (6) Hypoalbuminemia SNOMED Code(s): 640010090 ICD Code: E88.09 - OTH DISORDERS OF PLASMA-PROTEIN METABOLISM, NEC Status: Acute Priority: Medium Current Visit: Yes Onset Date: 05/13/17 Problem Details: High-protein Glucerna supplements as snacks recommended (7) Hypomagnesemia SNOMED Code(s): 409418873 ICD Code: E83.42 - HYPOMAGNESEMIA Status: Acute Priority: Medium Current Visit: Yes Onset Date: 05/13/17 Problem Details: Magnesium Oxide (8) Lactic acid increased SNOMED Code(s): 85914995 ICD Code: E87.2 - ACIDOSIS Status: Acute Priority: High Current Visit: Yes Onset Date: 05/13/17 Problem Details: Within normal range at this time (9) COPD (chronic obstructive pulmonary disease) SNOMED Code(s): 58502990 ICD Code: J44.9 - CHRONIC OBSTRUCTIVE PULMONARY DISEASE, UNSPECIFIED Status : Chronic Priority: High Current Visit: Yes Problem Details: Significant improvement in patient's symptoms with triple nebulizer treatment in the emergency room. Patient has unknown inhaler at home that she thinks she is supposed to take daily. Poorly compliant. Qualifiers: COPD type: COPD with acute lower respiratory infection Qualified Code(s): J44.0 - Chronic obstructive pulmonary disease with acute lower respiratory infection (10) Coronary artery disease SNOMED Code(s): 97723366 ICD Code: I25.10 - ATHSCL HEART DISEASE OF [place] CORONARY ARTERY W/O ANG PCTRS Status: Chronic Priority: Medium Current Visit: Yes Problem Details: Tachycardia improved with aggressive treatment as above. Tachycardia likely secondary to borderline possible sepsis, and dehydration no chest pain or anginal type symptoms. Only minimal BNP elevation with no clinical evidence of CHF. Note previous ND with PTCA and stent as above Qualifiers: Coronary Disease-Associated Artery/Lesion type: [place] artery [place] vs. transplanted heart: [place] heart Associated angina: without angina Qualified Code(s): I25.10 - Atherosclerotic heart disease of [place] coronary artery without angina pectoris (11) Hypokalemia SNOMED Code(s): 32846060 ICD Code: E87.6 - HYPOKALEMIA Status: Chronic Priority: High Current Visit: Yes Onset Date: 05/13/17 Problem Details: Normalized. Stable (12) Tobacco abuse counseling SNOMED Code(s): 943630224, 178089617 ICD Code: Z71.6 - TOBACCO ABUSE COUNSELING Status: Chronic Priority: Medium Current Visit: Yes Problem Details: Tobacco cessation strongly encouraged with tobacco cessation information to be provided at discharge (13) Thrombocytopenia SNOMED Code(s): 176068512 ICD Code: D69.6 - THROMBOCYTOPENIA, UNSPECIFIED Status: Acute Priority: Low Current Visit: Yes Problem Details: Uncertain as to how long patient has had below normal range of platelets. Further decrease noted today, likely dilutional given her dehydration initially yesterday and amount of IV fluids she has received since admission. - Patient Summary/Data Complications: None Hospital Course: Rapid improvement of severity of presenting symptoms noted within 24 hours. Cough became more prominent. Not able to collect sputum culture. Emesis resolved. Abdominal pain resolved. Intermittent fevers noted that also appear to have resolved. Potassium normalized and remained stable. Questionable + blood culture. As of today lab feels that it was contaminant and cultures considered negative. Plan at this time is to discharge patient home on antibiotics. Highly encouraged to quit smoking. Discussed improved control of COPD symptoms (compliance with inhalers). Numerous precautions reviewed prior to discharge. She is to return to the ER/clinic if she has any worsening of symptoms again. She should also get rechecked in clinic if symptoms are not resolved by end of this weekend. - Patient Instructions Diet: Heart Healthy Diet Activity: Rest and Relax Today Driving: May Drive Today Showering/Bathing: May Shower Notify Provider of: Fever, Increased Pain, Nausea and/or Vomiting Other/Special Instructions: Use inhaler at home as prescribed. Use albuterol inhaler as needed. Take antibiotics as prescribed. Follow up next week in clinic if your symptoms of illness have not completely resolved. Follow up earlier if you have any worsening of the problems again. Recommend starting daily Magnesium supplementation once you are done with your antibiotics. - Discharge Plan Prescriptions/Med Rec: Doxycycline [Vibramycin] 100 mg PO Q12HR #14 cap Home Medications: Home Meds Acetaminophen [Tylenol] 650 mg PO Q4H PRN 05/13/17 [History] Carvedilol [Coreg] 6.25 mg PO BIDMEALS 05/13/17 [History] Clopidogrel [Plavix] 75 mg PO DAILY 05/13/17 [History] Gabapentin [Neurontin] 300 mg PO TID 05/13/17 [History] Lisinopril 30 mg PO DAILY 05/13/17 [History] Sertraline [Zoloft] 100 mg PO BID 05/13/17 [History] atorvaSTATin [Lipitor] 20 mg PO BEDTIME 05/13/17 [History] busPIRone [Buspar] 15 mg PO BID 05/13/17 [History] oxyCODONE HCl [Oxycodone HCl] 10 mg PO 5XDAY 05/13/17 [History] Doxycycline [Vibramycin] 100 mg PO Q12HR #14 cap 05/16/17 [Rx] Patient Handouts: Shortness of Breath, [id number], Acute Bronchitis, Easy-to- Read Forms: ED Department Discharge Referrals: Dann Viramontes NP [Primary Care Provider] - - Discharge Summary/Plan Comment DC Time >30 min.: No - Patient Data Vitals - Most Recent: Last Vital Signs Temp 36.6 C 05/16/17 11:10 Pulse 73 05/16/17 11:10 Resp 15 05/16/17 08:00 BP 116/65 05/16/17 11:10 Pulse Ox 95 05/16/17 11:10 Weight - Most Recent: 110.404 kg I&O - Last 24 hours: Intake & Output 05/15/17 05/16/17 05/16/17 22:59 06:59 14:59 Intake Total 360 300 810 Output Total 200 700 Balance 160 -400 810 Lab Results - Last 24 hrs: Laboratory Results - last 24 hr 05/16/17 05/16/17 Range/Units 12:20 12:20 WBC 15.4 H (4.0-10.2) K/uL RBC 3.60 L (3.77-5.09) M/uL Hgb 11.1 L (11.7-15.5) g/dL Hct 33.9 L (34.0-46.0) % MCV 94.2 (84.0-98.0) fL MCH 30.8 (28.2-33.3) pg MCHC 32.7 (31.7-36.0) g/dL RDW 15.7 H (11.2-14.1) % Plt Count 151 (150-350) K/uL Neut % (Auto) 85.7 H (45.0-80.0) % Lymph % (Auto) 7.7 L (10.0-50.0) % [place] % (Auto) 6.3 (2.0-14.0) % Eos % (Auto) 0.2 (0.0-5.0) % Baso % (Auto) 0.1 (0.0-2.0) % Neut # (Auto) 13.16 H (1.40-7.00) K/uL Lymph # (Auto) 1.18 (0.50-3.50) K/uL [place] # (Auto) 0.97 (0.00-1.00) K/uL Eos # (Auto) 0.03 (0.00-0.50) K/uL Baso # (Auto) 0.02 (0.00-0.20) K/uL Sodium 138 (136-145) mmol/L Potassium 3.9 (3.5-5.1) mmol/L Chloride 102 (98-107) mmol/L Carbon Dioxide 27.4 (21.0-32.0) mmol/L BUN 11 (7-18) mg/dL Creatinine 0.60 (0.51-1.17) mg/dL Est Cr Clr Drug Dosing 94.06 mL/min Estimated GFR (MDRD) > 60 mL/min Glucose 91 (74-106) mg/dL Calcium 8.7 (8.5-10.1) mg/dL Med Orders - Current: Current Medications Acetaminophen (Tylenol) 650 mg PO Q4H PRN PRN Reason: Pain/Fever Last Admin: 05/15/17 07:25 Dose: 650 mg Albuterol/Ipratropium (Duoneb 3.0-0.5 Mg/3 Ml) 3 ml NEB QIDRT [facility] Last Admin: 05/16/17 11:08 Dose: 3 ml Atorvastatin Calcium (Lipitor) 20 mg PO BEDTIME [facility] Last Admin: 05/15/17 19:23 Dose: 20 mg Buspirone HCl (Buspar) 15 mg PO BID [facility] Last Admin: 05/16/17 07:40 Dose: 15 mg Carvedilol (Coreg) 6.25 mg PO BIDMEALS [facility] Last Admin: 05/16/17 07:40 Dose: 6.25 mg Clopidogrel Bisulfate (Plavix) 75 mg PO DAILY [facility] Last Admin: 05/16/17 07:42 Dose: 75 mg Gabapentin (Neurontin) 300 mg PO TID [facility] Last Admin: 05/16/17 11:07 Dose: 300 mg Azithromycin 500 mg/ Sodium (Chloride) 250 mls @ 250 mls/hr IV Q24H [facility] Last Admin: 05/15/17 12:15 Dose: 250 mls/hr Ceftriaxone Sodium 1 gm/ (Sodium Chloride) 100 mls @ 200 mls/hr IV Q24H [facility] Last Admin: 05/16/17 11:07 Dose: 200 mls/hr Lisinopril (Prinivil) 30 mg PO DAILY [facility] Last Admin: 05/16/17 07:42 Dose: 30 mg Magnesium Oxide (Magnesium Oxide) 400 mg PO DAILY [facility] Last Admin: 05/16/17 07:41 Dose: 400 mg Nicotine (Habitrol) 21 mg TRDERM DAILY [facility] Last Admin: 05/16/17 07:41 Dose: 21 mg Ondansetron HCl (Zofran) 4 mg IVPUSH Q6H PRN PRN Reason: Nausea/Vomiting Last Admin: 05/13/17 13:29 Dose: 4 mg Oxycodone HCl (Oxycodone) 10 mg PO 5XDRT [facility] Last Admin: 05/16/17 11:07 Dose: 10 mg Pantoprazole Sodium (Protonix Iv) 40 mg IV Q12HR [facility] Last Admin: 05/16/17 07:42 Dose: 40 mg Sertraline HCl (Zoloft) 50 mg PO BID@0800,1800 [facility] Last Admin: 05/16/17 07:42 Dose: 50 mg Sodium Chloride (Saline Flush) 10 ml FLUSH ASDIRECTED PRN PRN Reason: Keep Vein Open Last Admin: 05/16/17 07:45 Dose: 10 ml Discontinued Medications Albuterol/Ipratropium (Duoneb 3.0-0.5 Mg/3 Ml) 3 ml NEB ONETIME ONE Stop: 05/13/17 09:35 Last Admin: 05/13/17 10:00 Dose: 3 ml Albuterol/Ipratropium (Duoneb 3.0-0.5 Mg/3 Ml) 3 ml NEB Q6HRRT [facility] Last Admin: 05/15/17 03:05 Dose: Not Given Budesonide (Pulmicort) 0.5 mg NEB ONETIME ONE Stop: 05/13/17 09:35 Last Admin: 05/13/17 10:00 Dose: 0.5 mg Ceftriaxone Sodium (Rocephin) 1 gm IV ONETIME ONE Stop: 05/13/17 09:35 Last Admin: 05/13/17 10:02 Dose: 1 gm Famotidine (Pepcid) 40 mg IVPUSH ONETIME ONE Stop: 05/13/17 09:47 Last Admin: 05/13/17 10:02 Dose: 40 mg Lactated Ringer's (Ringers, Lactated) 1,000 mls @ 999 mls/hr IV .BOLUS ONE Stop: 05/13/17 10:46 Last Admin: 05/13/17 10:02 Dose: 999 mls/hr Sodium Chloride (Normal Saline) 1,000 mls @ 999 mls/hr IV .BOLUS ONE Stop: 05/13/17 13:30 Last Admin: 05/13/17 12:15 Dose: 999 mls/hr Sodium Chloride (Normal Saline) 1,000 mls @ 150 mls/hr IV ASDIRECTED TRISTIN Potassium Chloride 10 meq/ (Premix) 50 mls @ 50 mls/hr IV Q1H ONE Stop: 05/13/17 13:44 Potassium Chloride 10 meq/ (Premix) 50 mls @ 50 mls/hr IV ONETIME ONE Stop: 05/13/17 13:44 Last Admin: 05/13/17 13:28 Dose: 50 mls/hr Potassium Chloride 10 meq/ (Premix) 50 mls @ 50 mls/hr IV ONETIME ONE Stop: 05/13/17 15:59 Last Admin: 05/13/17 17:35 Dose: Not Given Sodium Chloride (Normal Saline) 1,000 mls @ 150 mls/hr IV ASDIRECTED TRISTIN Last Admin: 05/14/17 06:21 Dose: 150 mls/hr Sodium Chloride (Normal Saline) 1,000 mls @ 500 mls/hr IV .BOLUS ONE Stop: 05/13/17 19:31 Last Admin: 05/13/17 17:59 Dose: 500 mls/hr Iopamidol (Isovue-370 (76%)) 100 ml IVPUSH ONETIME ONE Stop: 05/13/17 10:30 Last Admin: 05/13/17 10:52 Dose: 100 ml Magnesium Oxide (Magnesium Oxide) 400 mg PO ONETIME ONE Stop: 05/13/17 11:13 Last Admin: 05/13/17 11:44 Dose: 400 mg Potassium Chloride (Klor-Con M20) 40 meq PO ONETIME ONE Stop: 05/13/17 11:13 Last Admin: 05/13/17 11:44 Dose: 40 meq Potassium Chloride (Klor-Con 10) 20 meq PO BIDMEALS TRISTIN Potassium Chloride (Klor-Con M20) 20 meq PO ONETIME ONE Stop: 05/13/17 15:01 Last Admin: 05/13/17 15:43 Dose: 20 meq Potassium Chloride (Klor-Con 10) 20 meq PO TID TRISTIN Potassium Chloride (Klor-Con M20) 20 meq PO ONETIME ONE Stop: 05/13/17 19:01 Last Admin: 05/13/17 18:26 Dose: 20 meq Potassium Chloride (Klor-Con M20) 20 meq PO ONETIME ONE Stop: 05/14/17 11:12 Last Admin: 05/14/17 11:43 Dose: 20 meq Potassium Chloride (Klor-Con M20) 20 meq PO ONETIME ONE Stop: 05/14/17 15:31 Last Admin: 05/14/17 15:48 Dose: 20 meq *Q Meaningful Use (DIS) - VTE *Q VTE Criteria *Q: VTE Pharmacological Contraindications *Q: Thrombocytopenia - Stroke *Q Stroke Criteria *Q: - AMI *Q AMI Criteria *Q:
== END 2017-05-16 14:00 | disposition home or self-care (01) | DRG 392 ==
LOC: LL.ED 09:32 → LL.MS 11:30
PROVIDERS: ADMIT Emergency Medicine; ATTEND Emergency Medicine
DX: R10.9 Unspecified abdominal pain (principal); E87.2 Acidosis; R79.89 Other specified abnormal findings of blood chemistry; E86.0 Dehydration; E87.6 Hypokalemia; E83.42 Hypomagnesemia; R73.9 Hyperglycemia, unspecified; E88.09 Other disorders of plasma-protein metabolism, not elsewhere classified; I25.10 Atherosclerotic heart disease of native coronary artery without angina pectoris; I10 Essential (primary) hypertension; Z95.5 Presence of coronary angioplasty implant and graft; I25.2 Old myocardial infarction; J44.9 Chronic obstructive pulmonary disease, unspecified; E78.00 Pure hypercholesterolemia, unspecified; M19.90 Unspecified osteoarthritis, unspecified site; G89.29 Other chronic pain; M54.9 Dorsalgia, unspecified; G62.9 Polyneuropathy, unspecified; E66.9 Obesity, unspecified; H54.7 Unspecified visual loss; D69.6 Thrombocytopenia, unspecified; Z72.0 Tobacco use; Z91.018 Allergy to other foods; Z79.899 Other long term (current) drug therapy
CPT/HCPCS: 36415; 71020; 71275; 74022; 80048; 80053; 81001; 82150; 82550; 82553; 82962; 83036; 83605; 83690; 83735; 83880; 84132; 84443; 84484; 85025; 85379; 87040; 87081; 87430; 87804; 93005; 94640; 96361; 96365; 96375; 99285; A9270-GY; C9113; J0456; J0696; J2405; J3480; J7030; J7050; J7120; Q9967; S0028

== ENCOUNTER 2019-05-29 11:14 | Day surgery (SDC) | payer BC ==
[~2019-05-29 11:14] MED LIST: Lactated Ringers 1,000 ML IV SCH; Sodium Chloride 0.9% 10 ML Syringe FLUSH PRN
[2019-05-29] MEDS ORDERED: Propofol 200 MG/20 ML SDV ONE ×2 (12:11→12:49)
[2019-05-29] MEDS ORDERED: Midazolam 1 MG/ML 2 ML SDV ONE ×2 (12:11→12:49)
[2019-05-29] MEDS ORDERED: fentaNYL 250 MCG/5 ML SDV ONE ×2 (12:11→12:49)
[2019-05-29] MEDS ORDERED: Albuterol/Ipratropium 3.0-0.5 MG/3 ML Neb Soln NEB ONE (12:22)
[2019-05-29] MEDS ORDERED: Ondansetron 4 MG/2 ML SDV ONE (12:49)
[2019-05-29] MEDS ORDERED: ePHEDrine 50 MG/ML SDV ONE (12:49)
[2019-05-29] MEDS ORDERED: ceFAZolin 1 GM Vial ONE (12:49)
--- NOTE | 2019-05-30 14:39 | PCM.OPNOTE ---
- General Post-Op/Procedure Note Date of Surgery/Procedure: 05/29/19 Operative Procedure(s): bilateral long finger trigger finger release Pre Op Diagnosis: bilateral long finger triggering Post-Op Diagnosis: Same Anesthesia Technique: General LMA Primary Surgeon: Pasha Langston Anesthesia Provider: Nicolette Clark EBL in mLs: 15 Complications: None Condition: Good
--- NOTE | 2019-05-30 20:49 | OR ---
Date of Procedure: 05/29/2019 PREOPERATIVE DIAGNOSIS: Bilateral long finger trigger finger. POSTOPERATIVE DIAGNOSIS: Bilateral long finger trigger finger. PROCEDURE PERFORMED: Bilateral long finger trigger finger release. ANESTHESIA: LMA, Nicolette Clark CRNA. FLUIDS: Lactated Ringer's solution. ESTIMATED BLOOD LOSS: 15 mL. COMPLICATION: None. SPECIMEN: None. DISCHARGE DISPOSITION: Stable to PACU. HISTORY AND INDICATIONS: The patient was seen preoperatively in the clinic. She has had triggering going on for many months, bilateral long finger trigger finger. Risks and goals of the procedure were explained to the patient and informed consent was obtained. DESCRIPTION OF PROCEDURE: The patient was seen preoperatively by myself and the Anesthesia staff in the preoperative holding area where the operative site was marked. She was brought to the operative suite by Anesthesia staff, where general anesthesia was administered. Bilateral upper extremities were then prepped and draped in sterile manner. Tourniquets were placed on both forearms but never inflated during the case. A timeout was called identifying the correct patient, correct procedure, and correct site, and the antibiotics had been given appropriate period of time. We started with right long finger. The A1 gerald was felt volarly. An incision was made directly over the A1 gerald in longitudinal fashion. Bleeding was controlled with bipolar electric cautery. I went through the fat and then was able to incise using 15 blade the extent of the A1 gerald. I then exteriorized the tendon with Ragnell. I then closed with 2 horizontal mattress sutures which were 3-0 nylon followed by Betadine-soaked Adaptic, fluffs, and Douglas wrap. I then performed the same procedure on the left long finger A1 gerald. After that was complete, the patient was then allowed to wake from general anesthesia and taken to the PACU in stable condition. JASS Langston DO DO /[id number]
== END 2019-05-29 14:33 | disposition home or self-care (01) ==
LOC: LL.SDS 11:14
PROVIDERS: ATTEND Orthopaedic Surgery
DX: M65.332 Trigger finger, left middle finger (principal); M65.331 Trigger finger, right middle finger; E11.9 Type 2 diabetes mellitus without complications; I25.2 Old myocardial infarction; F17.210 Nicotine dependence, cigarettes, uncomplicated; Z79.82 Long term (current) use of aspirin; Z79.84 Long term (current) use of oral hypoglycemic drugs; Z79.02 Long term (current) use of antithrombotics/antiplatelets
CPT/HCPCS: J0690; J2001; J2250; J2405; J2704; J3010; J7120; J7620-GY

== ENCOUNTER 2019-08-14 17:11 | Emergency (ER) | payer BC, OTHER ==
--- NOTE | 2019-08-14 17:55 | EDM.PDOC ---
ED HPI GENERAL MEDICAL PROBLEM - General Chief Complaint: Upper Extremity Injury/Pain Stated Complaint: LEFT WRIST PAIN Time Seen by Provider: 08/14/19 17:20 Source of Information: Reports: Patient History Limitations: Reports: No Limitations - History of Present Illness INITIAL COMMENTS - FREE TEXT/NARRATIVE: Pt fell and landed on left wrist earlier today Now with increased pain Did take pain medication prior to ER visit Onset: Today, Sudden Duration: Hour(s): Location: Reports: Upper Extremity, Left Quality: Reports: Throbbing Severity: Moderate Improves with: Reports: Immobilization Worsens with: Reports: Movement Context: Reports: Trauma Treatments SUSTAINABILITY PURCHASING AGENT: Reports: Other (see below) Other Treatments SUSTAINABILITY PURCHASING AGENT: oxycodone 10 mg at 1400. Left Wrist Pain Score (Numeric/FACES): 5 - Related Data Allergies Allergy/AdvReac Type Severity Reaction Status Date / Time [place] nuts Allergy Swelling Uncoded 08/14/19 17:32 Home Meds: Home Meds Carvedilol [Coreg] 6.25 mg PO BIDMEALS 05/13/17 [History] Clopidogrel [Plavix] 75 mg PO DAILY 05/13/17 [History] Gabapentin [Neurontin] 300 mg PO TID 05/13/17 [History] Lisinopril 30 mg PO DAILY 05/13/17 [History] Sertraline [Zoloft] 150 mg PO DAILY 05/13/17 [History] busPIRone [Buspar] 15 mg PO BID 05/13/17 [History] oxyCODONE HCl [Oxycodone HCl] 10 mg PO Q4HR PRN 05/13/17 [History] Albuterol [Ventolin HFA] 2 puff INH TID PRN 05/28/19 [History] Albuterol/Ipratropium [Combivent Respimat] 2 puff IH Q4H PRN 05/28/19 [History] Aspirin [Aspirin EC] 325 mg PO DAILY 05/28/19 [History] Famotidine [Pepcid] 20 mg PO BID PRN 05/28/19 [History] Nitroglycerin 0.4 mg SL ASDIRECTED PRN 05/28/19 [History] hydrOXYzine HCL [Hydroxyzine HCl] 25 mg PO QID PRN 05/28/19 [History] metFORMIN HCl [Metformin HCl] 500 mg PO BID 05/28/19 [History] Past Medical History HEENT History: Reports: Impaired Vision, Other (See Below) Other HEENT History: Severe allergic reactions to [place] nuts including angioedema Cardiovascular History: Reports: High Cholesterol, Hypertension, [place] Other Cardiovascular History: Acute [place] on 04/30/09 Respiratory History: Reports: COPD Gastrointestinal History: Reports: Cholelithiasis, Pancreatitis, Other (See Below) Other Gastrointestinal History: Pancreatitis secondary to remaining in 1990 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: Musculoskeletal History: Reports: Back Pain, Chronic, Fracture Other Musculoskeletal History: Right distal radial fracture on 06/17/16, scoliosis with degenerative disc disease including disc prolapse at L5-S1 and grade 1 listhesis at L4-L5 by MRI on 08/08/16 Neurological History: Reports: None Psychiatric History: Reports: Depression Endocrine/Metabolic History: Reports: Diabetes, Type II, Obesity/BMI 30+ Dermatologic History: Reports: Eczema - Infectious Disease History Infectious Disease History: Reports: Chicken Pox, MRSA - Past Surgical History Cardiovascular Surgical History: Reports: Coronary Artery Stent GI Surgical History: Reports: Cholecystectomy Female Surgical History: Reports: Other (See Below) Other Female Surgeries/Procedures: BLADDER/RECTAL REPAIR Neurological Surgical History: Reports: None Musculoskeletal Surgical History: Reports: None - Past Imaging History Past Imaging History: Reports: Angiography (Heart catheterization on 04/30/09), Cardiac Echo (12/26/12 with ejection fraction of 69%), MRI (Lumbar region on 08/08), Stress Testing (Unknown Type of drug induced stress test without Cardiolite scan in April 2009), Venous Doppler (Right leg on 01/07/13) Social & Family History - Family History Psychiatric: Reports: Anxiety, Depression, Suicide Attempt, Other (See Below) Other Psychiatric Family History: Son with anxiety depression disorder, alcohol abuse and successful suicide at age 23; - Tobacco Use Smoking Status *Q: Current Every Day Smoker Years of Tobacco use: 40 Packs/Tins Daily: 1 Used Tobacco, but Quit: Yes Month/Year Tobacco Last Used: 1 - Caffeine Use Caffeine Use: Reports: Coffee, Soda - Recreational Drug Use Recreational Drug Use: No - Living Situation & Occupation Occupation: Employed ([employer]) Review of Systems - Review of Systems Review Of Systems: See Below Musculoskeletal: Reports: Other (Left wrist pain and swelling) ED EXAM, GENERAL - Physical Exam Exam: See Below Exam Limited By: No Limitations General Appearance: Moderate Distress Extremities: Limited Range of Motion, Other (Left wrist with mild swelling No deformity Tender with palpation and ROM) Course - Vital Signs Last Recorded V/S: Last Vital Signs Temp 97.4 F 08/14/19 17:13 Pulse 84 08/14/19 17:13 Resp 16 08/14/19 17:13 BP 139/82 08/14/19 17:13 Pulse Ox 98 08/14/19 17:13 - Orders/Labs/Meds Orders: Active Orders 24 hr Category Date Time Status Wrist Comp Min 3V Lt [CR] Stat Exams 08/14/19 17:23 Taken - Re-Assessments/Exams Free Text/Narrative Re-Assessment/Exam: 08/14/19 17:53 Xray: Per radiologist No acute fracture Splint placed in ER Departure - Departure Time of Disposition: 18:00 Disposition: Home, Self-Care 01 Clinical Impression: Wrist pain, left - Discharge Information *PRESCRIPTION DRUG MONITORING PROGRAM REVIEWED*: Not Applicable *COPY OF PRESCRIPTION DRUG MONITORING REPORT IN PATIENT JUILA: Not Applicable Instructions: Wrist Pain, Adult, [id number] Referrals: Kim Fields, DIRECTOR OF VITAL STATISTICS [Primary Care Provider] - Additional Instructions: Ice as needed Splint as needed Follow up in clinic Sepsis Event Note - Evaluation Sepsis Screening Result: No Definite Risk - Focused Exam Vital Signs: Vital Signs Temp Pulse Resp BP Pulse Ox 08/14/19 17:13 97.4 F 84 16 139/82 98 Date Exam was Performed: 08/14/19 Time Exam was Performed: 17:49 - My Orders Last 24 Hours: My Active Orders 08/14/19 17:23 Wrist Comp Min 3V Lt [CR] Stat - Assessment/Plan Last 24 Hours: My Active Orders 08/14/19 17:23 Wrist Comp Min 3V Lt [CR] Stat
== END 2019-08-14 18:20 | disposition home or self-care (01) ==
LOC: LL.ED 17:11
DX: M25.532 Pain in left wrist (principal); E78.00 Pure hypercholesterolemia, unspecified; I10 Essential (primary) hypertension; I25.2 Old myocardial infarction; J44.9 Chronic obstructive pulmonary disease, unspecified; F32.9 Major depressive disorder, single episode, unspecified; E11.9 Type 2 diabetes mellitus without complications; E66.9 Obesity, unspecified; F17.210 Nicotine dependence, cigarettes, uncomplicated; Z91.018 Allergy to other foods; Z79.899 Other long term (current) drug therapy; Z79.02 Long term (current) use of antithrombotics/antiplatelets; Z79.82 Long term (current) use of aspirin; Z79.84 Long term (current) use of oral hypoglycemic drugs
CPT/HCPCS: 73110-LT; 99283-25